=== PATIENT | male | born 1960 | race Caucasian/White ===

== ENCOUNTER 2020-06-01 18:09 | Inpatient (IN) | payer MEDICAID, SELFPAY ==
[2020-06-01 18:27] VITALS: BP 124/75; PULSE 97; RESP 20; TEMP 36.7; O2SAT 100; BMI 23.5
--- NOTE | 2020-06-01 18:52 | W.ED.BACK ---
Documented by User: RAISSA Zelaya 06/02/20 02:15 HPI - Back Pain/Injury General: Chief Complaint: Back Pain/Injury Stated Complaint: Left side back pain Time Seen by Provider: 06/01/20 18:38 History of Present Illness: HPI Narrative: Patient is a 60-year-old male who comes to the ED with left lower back pain. Pain started over a month ago. Patient says he has been walking a lot to get around town and states after all of his walking he started developing some lower back pain. He is also complaining of having some left thigh muscle pain particularly the medial aspect of left thigh. Patient denies any injury, trauma to cause symptoms. Denies any numbness tingling or pain down lower extremities, pelvic anesthesia, bladder or bowel incontinence. He says he has been tired lately. Patient also complained of having some nausea and vomiting that occurred earlier last week but has since resolved. He still has a little bit of nausea. Denies fever, chills, chest pain, shortness of breath, abdominal pain bladder or bowel symptoms. Patient is a tobacco smoker and says he has a [id number] history. Associated symptoms: Reports nausea; Deny abdominal pain, chills, dysuria, fatigue, fever(s), hematuria or vomiting Review of Systems Const: Denies: fever(s), chills or fatigue Eyes: Denies: change in vision or eye discomfort ENMT: Denies: throat pain, odynophagia, nasal discharge or nasal congestion Card: Denies: chest pain, palpitations, edema, swelling of feet/ankles, dyspnea on exertion or orthopnea Resp: Denies: dyspnea, productive cough or non-productive cough GI: Reports: nausea; Denies: abdominal pain, vomiting, diarrhea, constipation or hematochezia : Denies: flank pain, difficulty urinating, dysuria or hematuria Musc: Reports: back pain (left lower back); Denies: neck pain or extremity swelling Skin/Breast: Denies: rash or new lesions Neuro: Denies: headache(s), numbness in extremities or weakness in extremities Physical Exam Const: COMMON NORMALS: no acute distress, patient oriented x3 and alert GENERAL APPEARANCE: cooperative and comfortable HENMT: COMMON NORMALS: normocephalic HEAD & SCALP: normocephalic MOUTH: moist mucous membranes abnormal Details: parched THROAT: posterior oropharynx normal and uvula midline Eye: COMMON NORMALS: Equal, round and reactive pupils present CONJUNCTIVA: Yes conjunctival abnormal positive bilateral pallor PUPIL: Yes Equal, round and reactive pupils present Neck/C-Spine: COMMON NORMALS: supple GENERAL: Yes normal visual inspection Resp: COMMON NORMALS: normal respiratory effort, No retractions, No use of accessory muscles and clear to auscultation bilaterally AUSCULTATION: clear to auscultation bilaterally Cardio: COMMON NORMALS: regular rate, regular rhythm, S1 normal heart sound present, S2 normal heart sound present, No gallops present (Cardio), No clicks present (Cardio), No murmurs present (Cardio) and Peripheral pulses 2+ throughout RATE: regular rate RHYTHM: regular rhythm HEART SOUNDS: S1 normal heart sound present and S2 normal heart sound present PERIPHERAL PULSES: Peripheral pulses 2+ throughout GI: COMMON NORMALS: Normal to inspection, nondistended, normoactive bowel sounds present, Soft to palpation, non-tender and no masses PALPATION: Yes Soft to palpation : COMMON NORMALS: Yes no CVA tenderness BLADDER/KIDNEY EXAM: Yes no CVA tenderness Back/Pelvis: COMMON NORMALS: no CVA tenderness LUMBAR SPINE/LOWER BACK: No lumbar spinal tenderness and Yes paraspinal muscle tenderness Lumbar paraspinal muscle tenderness: left left lumbar paraspinal muscle tenderness: L3 and L4 Extremity: COMMON NORMALS: normal to inspection Neuro: COMMON NORMALS: patient oriented x3 and moves all extremities SENSORIUM/ORIENTATION: Yes alert Skin: GENERAL SKIN EXAM: dry skin Procedures Stool Hemoccult Procedural Steps Taken: stool placed in appropriate test area, developer placed on stool and control areas and controls appropriately positive and negative Hemoccult result: positive Additional Comments: Digital rectal exam was performed to obtain stool Hemoccult test. Stool appeared black in color. Course Vital Signs: Vital signs: Vital Signs Temperature 97.8 F 06/02/20 01:35 Pulse Rate 80 06/02/20 01:35 Respiratory Rate 16 06/02/20 01:35 Blood Pressure 130/65 06/02/20 01:35 Pulse Oximetry 98 06/02/20 01:35 MDM - Back Pain/Injury MDM Narrative: Medical decision making narrative: Patient is a 60-year-old male comes to the ED with left lower back pain and some nausea. Physical exam showed some conjunctiva pallor and patient has some paraspinal lumbar muscle tenderness on the left side. CBC was remarkable for hemoglobin of 5.0 and hematocrit of 15.9. White blood cells 14.2. Sodium was 122. I discussed patient case with Dr. Sarkar I ordered a type and screen and to units of blood for transfusion. CTA of chest abdomen pelvis was ordered as well. Care was then transferred over to Dr. Sarkar and he contacted hospitalist about admission. Lab Data: Attestation: I reviewed the patient's lab results. Labs: Lab Results 06/01/20 06/01/20 06/01/20 Range/Units 19:30 19:30 21:06 WBC 14.2 H (4.0-10.0) 10^3/ uL RBC 1.77 L (4.1-5.3) 10^6/u L Hgb 5.0 L* (11.7-16.6) g/dL Hct 15.9 L* (42.0-52.0) % MCV 89.8 (80-94) fL MCH 28.2 (28.0-34.0) pg MCHC 31.4 (30.0-36.0) g/dL RDW 15.5 H (12.1-15.1) % Plt Count 198 (130-400) 10^3/c mm MPV 10.7 H (7.4-10.4) fL Neut % (Auto) 83.1 % Lymph % (Auto) 5.9 % [place] % (Auto) 5.4 % Eos % (Auto) 0.1 % Baso % (Auto) 0.1 % Neut # (Auto) 11.77 H (1.8-7.7) 10^3/u L Lymph # (Auto) 0.8 (0.8-4.8) 10^3/u L [place] # (Auto) 0.8 (0.2-0.9) 10^3/u L Eos # (Auto) 0.0 (0.0-0.8) 10^3/u L Baso # (Auto) 0.0 (0.0-0.1) 10^3/u L Nucleated RBC % (a uto) 0.7 % Nucleated RBCs # 0.1 /100WBC Sodium 122 L (136-145) mmol/L Potassium 4.5 (3.5-5.1) mmol/L Chloride 87 L (98-107) mmol/L Carbon Dioxide 23 (22-29) mmol/L Anion Gap 16.5 (5-19) BUN 24 H (6-20) mg/dL Creatinine 0.6 L (0.7-1.2) mg/dL GFR Calculation 137.9 H (90-130) mL/min Glucose 96 (65-115) mg/dL Calculated Osmolal ity 258 L (285-295) mOsm/k g Calcium 8.9 (8.5-10.5) mg/dL Total Bilirubin 0.2 (0.15-1.2) mg/dL AST 28 (0-40) U/L ALT 16 (0-41) U/L Alkaline Phosphata se 207 H (40-130) IU/L Total Protein 6.4 L (6.6-8.7) g/dL Albumin 3.6 (3.5-5.2) g/dL Globulin 2.8 (1.3-4.6) g/dL SARS-CoV-2 Ag (Rap id) (Negative) Blood Type O Positive Rho(D) Type Positive Antibody Screen Negative Crossmatch See Detail 06/01/20 Range/Units 22:43 WBC (4.0-10.0) 10^3/ uL RBC (4.1-5.3) 10^6/u L Hgb (11.7-16.6) g/dL Hct (42.0-52.0) % MCV (80-94) fL MCH (28.0-34.0) pg MCHC (30.0-36.0) g/dL RDW (12.1-15.1) % Plt Count (130-400) 10^3/c mm MPV (7.4-10.4) fL Neut % (Auto) % Lymph % (Auto) % [place] % (Auto) % Eos % (Auto) % Baso % (Auto) % Neut # (Auto) (1.8-7.7) 10^3/u L Lymph # (Auto) (0.8-4.8) 10^3/u L [place] # (Auto) (0.2-0.9) 10^3/u L Eos # (Auto) (0.0-0.8) 10^3/u L Baso # (Auto) (0.0-0.1) 10^3/u L Nucleated RBC % (a uto) % Nucleated RBCs # /100WBC Sodium (136-145) mmol/L Potassium (3.5-5.1) mmol/L Chloride (98-107) mmol/L Carbon Dioxide (22-29) mmol/L Anion Gap (5-19) BUN (6-20) mg/dL Creatinine (0.7-1.2) mg/dL GFR Calculation (90-130) mL/min Glucose (65-115) mg/dL Calculated Osmolal ity (285-295) mOsm/k g Calcium (8.5-10.5) mg/dL Total Bilirubin (0.15-1.2) mg/dL AST (0-40) U/L ALT (0-41) U/L Alkaline Phosphata se (40-130) IU/L Total Protein (6.6-8.7) g/dL Albumin (3.5-5.2) g/dL Globulin (1.3-4.6) g/dL SARS-CoV-2 Ag (Rap id) Negative (Negative) Blood Type Rho(D) Type Antibody Screen Crossmatch Imaging Data^: CTA Chest: Attestation: I personally reviewed and interpreted this imaging study as follows: Radiologist's impression: [address] [address] [address] Scan Report Signed Patient: Александр Schaeffer Unit #: [id number] : 1960 Age/Sex: 60 / M ADM Date: 06/01/20 Loc: ER Room/Bed: Attending Dr: Ordering Provider/Ordering MD: Wisam Pozo Date of Service: 06/01/20 Procedure(s): CT angio chest abdomen pelvis Accession Number(s): [id number] Report Number: [id number] PROCEDURE INFORMATION: Exam: CT Angiography Abdomen and Pelvis With Contrast Exam date and time: 06/01/2020 9:14 PM Age: 60 years old Clinical indication: Abnormal findings; Abnormal lab test; Patient HX: Low h h w C/O low back pain; Additional info: Back pain and low hemoglobin TECHNIQUE: Imaging protocol: Computed tomographic angiography of the abdomen and pelvis with intravenous contrast material. 3D rendering (Not supervised by radiologist): MIP and/or 3D reconstructed images were created and reviewed. COMPARISON: No relevant prior studies available. FINDINGS: Lungs: Mild left perihilar pneumonia with some tree-in-bud opacities suggesting tuberculosis versus other infectious process or inflammatory process. Pleural space: Mild left pleural fluid collection. Aorta: No pulmonary embolus or aortic dissection. Celiac trunk and mesenteric arteries: No occlusion or significant stenosis. Renal arteries: No occlusion or significant stenosis. Right iliac arteries: No occlusion or significant stenosis. Left iliac arteries: No occlusion or significant stenosis. Liver: No mass. Gallbladder and bile ducts: Unremarkable. No calcified stones. No ductal dilation. Pancreas: Unremarkable. No mass. No ductal dilation. Spleen: Unremarkable. No splenomegaly. Adrenals: Unremarkable. No mass. Kidneys and ureters: Unremarkable. No solid mass. No hydronephrosis. Stomach and bowel: Unremarkable. No obstruction. No mucosal thickening. Appendix: No evidence of appendicitis. Intraperitoneal space: Unremarkable. No free air. No significant fluid collection. Lymph nodes: Calcified left hilar nodes and/or mediastinal nodes and/or lung granulomas consistent with old granulomatous disease. Right inferior hilar lymph nodes mimicking pulmonary emboli. Moderate mediastinal and bilateral hilar adenopathy consistent with lymphoma versus sarcoidosis. Urinary bladder: Unremarkable. No mass. Reproductive: Unremarkable as visualized. Bones/joints: No acute fracture. No dislocation. Soft tissues: Unremarkable. IMPRESSION: 1. Mild left pleural fluid collection. 2. Calcified left hilar nodes and/or mediastinal nodes and/or lung granulomas consistent with old granulomatous disease. 3. Mild left perihilar pneumonia with some tree-in-bud opacities suggesting tuberculosis versus other infectious process or inflammatory process. 4. Moderate mediastinal and bilateral hilar adenopathy consistent with lymphoma versus sarcoidosis. 5. No pulmonary embolus or aortic dissection. PROCEDURE INFORMATION: Exam: CT Angiography Abdomen and Pelvis Without And With Contrast Exam date and time: 06/01/2020 9:14 PM Age: 60 years old Clinical indication: Abnormal findings; Abnormal lab test; Patient HX: Low h h w C/O low back pain; Additional info: Back pain and low hemoglobin TECHNIQUE: Imaging protocol: Computed tomographic angiography of the abdomen and pelvis without and with intravenous contrast material. 3D rendering (Not supervised by radiologist): MIP and/or 3D reconstructed images were created by the technologist. Radiation optimization: All CT scans at this facility use at least one of these dose optimization techniques: automated exposure control; mA and/or kV adjustment per patient size (includes targeted exams where dose is matched to clinical indication); or iterative reconstruction. Contrast material: OMNI 350; Contrast volume: 95 ml; Contrast route: INTRAVENOUS (IV); COMPARISON: No relevant prior studies available. RADIATION DOSE METRICS: Total DLP (mGy-cm): 1005.88 FINDINGS: Aorta: Calcification of the abdominal aorta and/or iliac arteries consistent with atherosclerotic vessel disease. Celiac trunk and mesenteric arteries: No occlusion or significant stenosis. Renal arteries: No occlusion or significant stenosis. Right iliac arteries: No occlusion or significant stenosis. Left iliac arteries: No occlusion or significant stenosis. Liver: No mass. Gallbladder and bile ducts: Multiple tiny calcified gallstones. Pancreas: Unremarkable. No mass. No ductal dilation. Spleen: Unremarkable. No splenomegaly. Adrenals: Unremarkable. No mass. Kidneys and ureters: Unremarkable. No solid mass. No hydronephrosis. Stomach and bowel: Jejunal bowel wall thickening consistent with jejunitis. Appendix: No evidence of appendicitis. Intraperitoneal space: Unremarkable. No free air. No significant fluid collection. Lymph nodes: Mild left middle mediastinum adenopathy in the inferior thorax with moderate to large left retrocrural adenopathy and probable gastrohepatic adenopathy and mild right retrocrural adenopathy. Lymphoma versus metastatic disease. Moderate jaswinder hepatis celiac axis and periaortic lymphadenopathy consistent with lymphoma versus metastatic disease. Urinary bladder: Unremarkable. No mass. Reproductive: Unremarkable as visualized. Bones/joints: No acute fracture. No dislocation. Soft tissues: Unremarkable. CT/CT angio chest abdomen pelvis IMPRESSION: 1. Mild left middle mediastinum adenopathy in the inferior thorax with moderate to large left retrocrural adenopathy and probable gastrohepatic adenopathy and mild right retrocrural adenopathy. Lymphoma versus metastatic disease. 2. Multiple tiny calcified gallstones. 3. Moderate jaswinder hepatis celiac axis and periaortic lymphadenopathy consistent with lymphoma versus metastatic disease. 4. Jejunal bowel wall thickening consistent with jejunitis. Radiation Dose CTDIVOL = (mGy): DLP = 1005.88 (mGy-cm) Dictated By: Kodak Coronel MD Signed By: Kodak Coronel MD Signed Date/Time: 06/01/202158 DD/ 56 Discharge Plan Discharge Patient Disposition: Admitted As Inpatient Admit Provider: Desiree Carrero Clinical Impression: Hyponatremia, Severe anemia GI bleed Qualifiers: GI bleed type/associated pathology: unspecified gastrointestinal hemorrhage type Qualified Code(s): K92.2 - Gastrointestinal hemorrhage, unspecified Condition: Stable Discharge Diet: Regular Discharge Activity: Increase activity as tolerated Patient Instructions: Low Back Strain (ED) Discharge Date/Time: 06/02/20 02:09 Coding Level of Care Code ED Table Assembler for Chg Fwd Exam Comprehensive Documented by User: Herbie Sarkar DO 06/02/20 01:02 HPI - Back Pain/Injury General: Chief Complaint: Back Pain/Injury Stated Complaint: Left side back pain Time Seen by Provider: 06/01/20 18:38 Course Consultations: Consultation #1: fabiana Time: 00:35 Consultation #2: lashell Time: 00:56 Vital Signs: Vital signs: Vital Signs Temperature 97.8 F 06/02/20 01:35 Pulse Rate 80 06/02/20 01:35 Respiratory Rate 16 06/02/20 01:35 Blood Pressure 130/65 06/02/20 01:35 Pulse Oximetry 98 06/02/20 01:35 MDM - Back Pain/Injury MDM Narrative: Medical decision making narrative: 60-year-old male patient originally seen by Mr. Nohelia PA-C. I agree with his history, evaluation, and work-up. This is a male who had come in with back pain, stating that his back pain is slowly worsened over the past week or so. He also had some nausea and vomiting. He denies any jessica blood in his stool. Laboratory was drawn, showing a white blood cell count 14.2 with a hemoglobin of 5. His sodium was also low at 122. BUN mildly high at 24. He was Hemoccult positive, with black stool, no jessica blood. CTA of the chest abdomen pelvis reveals some scattered adenopathy consistent with metastatic disease such as lymphoma. There is also wall thickening of the jejunum consistent with jejunitis, which may or may not be a source of his bleeding. He does take ibuprofen. There is a left perihilar infiltrate of the lungs. Because of this, COVID testing was performed, and his rapid antigen is negative. He has no COVID symptoms. He will be admitted to telemetry. He is received 1 unit of 2 crossmatched for him so far. Surgery was consulted and is on board. Lab Data: Labs: Lab Results 06/01/20 06/01/20 06/01/20 Range/Units 19:30 19:30 21:06 WBC 14.2 H (4.0-10.0) 10^3/ uL RBC 1.77 L (4.1-5.3) 10^6/u L Hgb 5.0 L* (11.7-16.6) g/dL Hct 15.9 L* (42.0-52.0) % MCV 89.8 (80-94) fL MCH 28.2 (28.0-34.0) pg MCHC 31.4 (30.0-36.0) g/dL RDW 15.5 H (12.1-15.1) % Plt Count 198 (130-400) 10^3/c mm MPV 10.7 H (7.4-10.4) fL Neut % (Auto) 83.1 % Lymph % (Auto) 5.9 % [place] % (Auto) 5.4 % Eos % (Auto) 0.1 % Baso % (Auto) 0.1 % Neut # (Auto) 11.77 H (1.8-7.7) 10^3/u L Lymph # (Auto) 0.8 (0.8-4.8) 10^3/u L [place] # (Auto) 0.8 (0.2-0.9) 10^3/u L Eos # (Auto) 0.0 (0.0-0.8) 10^3/u L Baso # (Auto) 0.0 (0.0-0.1) 10^3/u L Nucleated RBC % (a uto) 0.7 % Nucleated RBCs # 0.1 /100WBC Sodium 122 L (136-145) mmol/L Potassium 4.5 (3.5-5.1) mmol/L Chloride 87 L (98-107) mmol/L Carbon Dioxide 23 (22-29) mmol/L Anion Gap 16.5 (5-19) BUN 24 H (6-20) mg/dL Creatinine 0.6 L (0.7-1.2) mg/dL GFR Calculation 137.9 H (90-130) mL/min Glucose 96 (65-115) mg/dL Calculated Osmolal ity 258 L (285-295) mOsm/k g Calcium 8.9 (8.5-10.5) mg/dL Total Bilirubin 0.2 (0.15-1.2) mg/dL AST 28 (0-40) U/L ALT 16 (0-41) U/L Alkaline Phosphata se 207 H (40-130) IU/L Total Protein 6.4 L (6.6-8.7) g/dL Albumin 3.6 (3.5-5.2) g/dL Globulin 2.8 (1.3-4.6) g/dL SARS-CoV-2 Ag (Rap id) (Negative) Blood Type O Positive Rho(D) Type Positive Antibody Screen Negative Crossmatch See Detail 06/01/20 Range/Units 22:43 WBC (4.0-10.0) 10^3/ uL RBC (4.1-5.3) 10^6/u L Hgb (11.7-16.6) g/dL Hct (42.0-52.0) % MCV (80-94) fL MCH (28.0-34.0) pg MCHC (30.0-36.0) g/dL RDW (12.1-15.1) % Plt Count (130-400) 10^3/c mm MPV (7.4-10.4) fL Neut % (Auto) % Lymph % (Auto) % [place] % (Auto) % Eos % (Auto) % Baso % (Auto) % Neut # (Auto) (1.8-7.7) 10^3/u L Lymph # (Auto) (0.8-4.8) 10^3/u L [place] # (Auto) (0.2-0.9) 10^3/u L Eos # (Auto) (0.0-0.8) 10^3/u L Baso # (Auto) (0.0-0.1) 10^3/u L Nucleated RBC % (a uto) % Nucleated RBCs # /100WBC Sodium (136-145) mmol/L Potassium (3.5-5.1) mmol/L Chloride (98-107) mmol/L Carbon Dioxide (22-29) mmol/L Anion Gap (5-19) BUN (6-20) mg/dL Creatinine (0.7-1.2) mg/dL GFR Calculation (90-130) mL/min Glucose (65-115) mg/dL Calculated Osmolal ity (285-295) mOsm/k g Calcium (8.5-10.5) mg/dL Total Bilirubin (0.15-1.2) mg/dL AST (0-40) U/L ALT (0-41) U/L Alkaline Phosphata se (40-130) IU/L Total Protein (6.6-8.7) g/dL Albumin (3.5-5.2) g/dL Globulin (1.3-4.6) g/dL SARS-CoV-2 Ag (Rap id) Negative (Negative) Blood Type Rho(D) Type Antibody Screen Crossmatch Discharge Plan Discharge Patient Disposition: Admitted As Inpatient Admit Provider: Desiree Carrero Clinical Impression: Hyponatremia, Severe anemia GI bleed Qualifiers: GI bleed type/associated pathology: unspecified gastrointestinal hemorrhage type Qualified Code(s): K92.2 - Gastrointestinal hemorrhage, unspecified Condition: Stable Discharge Diet: Regular Discharge Activity: Increase activity as tolerated Patient Instructions: Low Back Strain (ED) Discharge Date/Time: 06/02/20 02:09 Coding Level of Care Code ED Table Assembler for Mimi Fwd Exam Comprehensive
[2020-06-01] MEDS: ondansetron 4 MG Tablet PO (19:21)
[2020-06-01] MEDS: ketorolac 60 mg/2 mL INJ IM (19:21)
[2020-06-01] MEDS: orphenadrine 30 mg/mL Inj 2 mL 60 MG IM (19:22)
[2020-06-01 19:48] LABS: Basophils % 0.1 %; Eosinophils % 0.1 %; Lymphocytes # 0.8 10^3/uL (0.8-4.8); Lymphocytes % 5.9 %; Mean Corpuscular HGB Conc 31.4 g/dL (30.0-36.0); Mean Corpuscular Hemoglobin 28.2 pg (28.0-34.0); Mean Corpuscular Volume 89.8 fL (80-94); Mean Platelet Volume 10.7 fL (7.4-10.4); Monocytes # 0.8 10^3/uL (0.2-0.9); Monocytes % 5.4 %; Neutrophils # 11.77 10^3/uL (1.8-7.7); Neutrophils % 83.1 %; Nucleated Red Blood Cells # 0.1 /100WBC; Nucleated Red Blood Cells % 0.7 %; Platelet Count 198 10^3/cmm (130-400); Positive C 1; Positive M 1; Red Blood Count 1.77 10^6/uL (4.1-5.3); Red Cell Distribution Width 15.5 % (12.1-15.1); White Blood Count 14.2 10^3/uL (4.0-10.0)
[2020-06-01 20:32] LABS: Alanine Aminotransferase 16 U/L (0-41); Albumin Level 3.6 g/dL (3.5-5.2); Alkaline Phosphatase 207 IU/L (40-130); Anion Gap 16.5 (5-19); Aspartate Amino Transferase 28 U/L (0-40); Blood Urea Nitrogen 24 mg/dL (6-20); Calcium 8.9 mg/dL (8.5-10.5); Carbon Dioxide 23 mmol/L (22-29); Chloride 87 mmol/L (98-107); Globulin 2.8 g/dL (1.3-4.6); Glomerular Filtration Rate 137.9 mL/min (90-130); Glucose 96 mg/dL (65-115); Osmolality Calculated 258 mOsm/kg (285-295); Potassium 4.5 mmol/L (3.5-5.1); Sodium 122 mmol/L (136-145); Total Bilirubin 0.2 mg/dL (0.15-1.2); Total Protein 6.4 g/dL (6.6-8.7)
[2020-06-01 20:33] VITALS: BP 141/63; PULSE 83; RESP 18; O2SAT 100
[2020-06-01 20:50] LABS: Hematocrit 15.9 % (42.0-52.0)
--- NOTE | 2020-06-01 20:54 | CTR_ITS ---
PROCEDURE INFORMATION: Exam: CT Angiography Abdomen and Pelvis With Contrast Exam date and time: 06/01/2020 9:14 PM Age: 60 years old Clinical indication: Abnormal findings; Abnormal lab test; Patient HX: Low h&h w C/O low back pain; Additional info: Back pain and low hemoglobin TECHNIQUE: Imaging protocol: Computed tomographic angiography of the abdomen and pelvis with intravenous contrast material. 3D rendering (Not supervised by radiologist): MIP and/or 3D reconstructed images were created and reviewed. COMPARISON: No relevant prior studies available. FINDINGS: Lungs: Mild left perihilar pneumonia with some tree-in-bud opacities suggesting tuberculosis versus other infectious process or inflammatory process. Pleural space: Mild left pleural fluid collection. Aorta: No pulmonary embolus or aortic dissection. Celiac trunk and mesenteric arteries: No occlusion or significant stenosis. Renal arteries: No occlusion or significant stenosis. Right iliac arteries: No occlusion or significant stenosis. Left iliac arteries: No occlusion or significant stenosis. Liver: No mass. Gallbladder and bile ducts: Unremarkable. No calcified stones. No ductal dilation. Pancreas: Unremarkable. No mass. No ductal dilation. Spleen: Unremarkable. No splenomegaly. Adrenals: Unremarkable. No mass. Kidneys and ureters: Unremarkable. No solid mass. No hydronephrosis. Stomach and bowel: Unremarkable. No obstruction. No mucosal thickening. Appendix: No evidence of appendicitis. Intraperitoneal space: Unremarkable. No free air. No significant fluid collection. Lymph nodes: Calcified left hilar nodes and/or mediastinal nodes and/or lung granulomas consistent with old granulomatous disease. Right inferior hilar lymph nodes mimicking pulmonary emboli. Moderate mediastinal and bilateral hilar adenopathy consistent with lymphoma versus sarcoidosis. Urinary bladder: Unremarkable. No mass. Reproductive: Unremarkable as visualized. Bones/joints: No acute fracture. No dislocation. Soft tissues: Unremarkable. IMPRESSION: 1. Mild left pleural fluid collection. 2. Calcified left hilar nodes and/or mediastinal nodes and/or lung granulomas consistent with old granulomatous disease. 3. Mild left perihilar pneumonia with some tree-in-bud opacities suggesting tuberculosis versus other infectious process or inflammatory process. 4. Moderate mediastinal and bilateral hilar adenopathy consistent with lymphoma versus sarcoidosis. 5. No pulmonary embolus or aortic dissection. PROCEDURE INFORMATION: Exam: CT Angiography Abdomen and Pelvis Without And With Contrast Exam date and time: 06/01/2020 9:14 PM Age: 60 years old Clinical indication: Abnormal findings; Abnormal lab test; Patient HX: Low h&h w C/O low back pain; Additional info: Back pain and low hemoglobin TECHNIQUE: Imaging protocol: Computed tomographic angiography of the abdomen and pelvis without and with intravenous contrast material. 3D rendering (Not supervised by radiologist): MIP and/or 3D reconstructed images were created by the technologist. Radiation optimization: All CT scans at this facility use at least one of these dose optimization techniques: automated exposure control; mA and/or kV adjustment per patient size (includes targeted exams where dose is matched to clinical indication); or iterative reconstruction. Contrast material: OMNI 350; Contrast volume: 95 ml; Contrast route: INTRAVENOUS (IV); COMPARISON: No relevant prior studies available. RADIATION DOSE METRICS: Total DLP (mGy-cm): 1005.88 FINDINGS: Aorta: Calcification of the abdominal aorta and/or iliac arteries consistent with atherosclerotic vessel disease. Celiac trunk and mesenteric arteries: No occlusion or significant stenosis. Renal arteries: No occlusion or significant stenosis. Right iliac arteries: No occlusion or significant stenosis. Left iliac arteries: No occlusion or significant stenosis. Liver: No mass. Gallbladder and bile ducts: Multiple tiny calcified gallstones. Pancreas: Unremarkable. No mass. No ductal dilation. Spleen: Unremarkable. No splenomegaly. Adrenals: Unremarkable. No mass. Kidneys and ureters: Unremarkable. No solid mass. No hydronephrosis. Stomach and bowel: Jejunal bowel wall thickening consistent with jejunitis. Appendix: No evidence of appendicitis. Intraperitoneal space: Unremarkable. No free air. No significant fluid collection. Lymph nodes: Mild left middle mediastinum adenopathy in the inferior thorax with moderate to large left retrocrural adenopathy and probable gastrohepatic adenopathy and mild right retrocrural adenopathy. Lymphoma versus metastatic disease. Moderate jaswinder hepatis celiac axis and periaortic lymphadenopathy consistent with lymphoma versus metastatic disease. Urinary bladder: Unremarkable. No mass. Reproductive: Unremarkable as visualized. Bones/joints: No acute fracture. No dislocation. Soft tissues: Unremarkable. CT/CT angio chest abdomen pelvis IMPRESSION: 1. Mild left middle mediastinum adenopathy in the inferior thorax with moderate to large left retrocrural adenopathy and probable gastrohepatic adenopathy and mild right retrocrural adenopathy. Lymphoma versus metastatic disease. 2. Multiple tiny calcified gallstones. 3. Moderate jaswinder hepatis celiac axis and periaortic lymphadenopathy consistent with lymphoma versus metastatic disease. 4. Jejunal bowel wall thickening consistent with jejunitis. Radiation Dose CTDIVOL = (mGy): DLP = 1005.88 (mGy-cm)
[2020-06-01] MEDS: iohexol 350 mg/mL 100 mL Btl IV (21:31)
[2020-06-01 22:35] VITALS: BP 106/63; PULSE 83; RESP 17; TEMP 36.7; O2SAT 100
[2020-06-01] MEDS: sodium chloride 0.9% 1,000 ML 999 ML IV (22:38)
[2020-06-01 22:40] VITALS: BP 108/63; PULSE 97; RESP 18; O2SAT 100
[2020-06-01 22:53] VITALS: BP 115/52; PULSE 85; RESP 18; TEMP 36.8
[2020-06-01 23:08] VITALS: BP 115/63; PULSE 80; RESP 16; TEMP 36.7
--- NOTE | 2020-06-01 23:12 | PC.NURSE ---
rate at 175 ml/hr
[2020-06-01 23:16] LABS: SARS Covid-2 Antigen Negative (Negative)
[2020-06-02] VITALS (21 sets, daily range): BP systolic 105–147; BP diastolic 53–81; PULSE 72–93; RESP 12–21; TEMP 36.4–37.6; O2SAT 91–99
--- NOTE | 2020-06-02 01:05 | PC.NURSE ---
pt reports relief after one unit. Pt's coloring improved after infusion
[2020-06-02] MEDS: sodium chloride 0.9% 1,000 ML 100 ML IV ×2 (04:13→10:24)
[2020-06-02] MEDS: morphine 4 mg/mL SDV 1 mL IVP (04:14)
[2020-06-02 05:18] LABS: Basophils # 0.1 10^3/uL (0.0-0.1); Basophils % 0.4 %; Eosinophils # 0.1 10^3/uL (0.0-0.8); Eosinophils % 0.5 %; Lymphocytes # 0.6 10^3/uL (0.8-4.8); Mean Corpuscular HGB Conc 32.5 g/dL (30.0-36.0); Mean Corpuscular Hemoglobin 29.1 pg (28.0-34.0); Mean Corpuscular Volume 89.6 fL (80-94); Mean Platelet Volume 10.9 fL (7.4-10.4); Monocytes # 0.7 10^3/uL (0.2-0.9); Neutrophils # 9.57 10^3/uL (1.8-7.7); Neutrophils % 81.9 %; Nucleated Red Blood Cells # 0.1 /100WBC; Nucleated Red Blood Cells % 1.1 %; Platelet Count 161 10^3/cmm (130-400); Red Blood Count 2.68 10^6/uL (4.1-5.3); Red Cell Distribution Width 14.8 % (12.1-15.1); White Blood Count 11.7 10^3/uL (4.0-10.0)
--- NOTE | 2020-06-02 05:20 | PM.HP ---
Providers/Chief Complaint Admitting Physician: Desiree Carrero MD Primary Care Provider: none Chief Complaint: Left side back pain History of Present Illness Александр Schaeffer is a 60 year old male who presented to the emergency room with a chief complaint of back pain and leg pain. Patient was recently incarcerated in [facility]. He was there for about 4 months. He was released on parole. He walked a long way and then eventually ended up with a ride here. He has arrangements made to stay at [facility] for about 6 months. He has an electronic monitoring device on his left ankle. Because of all the walking he did his back is been bothering for several weeks. He was released in March. Groin muscles and low back muscles are what bother him the most. He reported fatigue as well as some nausea and vomiting. Work-up in the emergency room included laboratory studies which revealed a hemoglobin of 5. Stool was Hemoccult positive and black in color. Patient himself had not noted black stools or tarry stools. He denies any hematemesis. CTA of the chest abdomen and pelvis was done. This ended up revealing multiple findings as noted below. Given the severity of anemia, patient is being admitted for further evaluation and treatment. Review of Systems Const: Denies: fever(s), chills, body aches, change in appetite, change in weight, fatigue, malaise, night sweats or diaphoresis Eyes: Denies: change in vision or yellow eyes ENMT: Denies: throat pain, odynophagia, oral sores, dry mouth, nasal congestion or epistaxis Card: Denies: chest pain, palpitations, edema, lightheadedness, syncope, pre-syncope or dyspnea on exertion Resp: Denies: productive cough, non-productive cough, wheezing, stridor, pain on inspiration or hemoptysis GI: Denies: abdominal pain, nausea, vomiting, diarrhea, constipation, change in bowel habits, hematochezia or melena : Denies: difficulty urinating or hematuria Musc: Reports: back pain, extremity pain and muscle weakness Skin/Breast: Denies: rash, pruritus or sores Neuro: Denies: headache(s), numbness in extremities, weakness in extremities or dizziness Psych: Denies: anxiety or depression [place]/Lymph: Denies: easy bruising, easy bleeding, petechiae, enlarged lymph nodes or tender lymph nodes Medications/Allergies Allergies Allergy/AdvReac Type Severity Reaction Status Date / Time aspirin Allergy ADR-Seizure Verified 06/01/20 18:33 Additional Medication Information Aspirin for pain or migraine when needed, not daily. Has taken ibuprofen but not recently due to COVID warnings. PFSH Acute PFSH: Medical History (Updated 06/02/20 @ 05:59 by Desiree Carrero MD) Migraine headache Surgical History (Updated 06/02/20 @ 05:30 by Desiree Carrero MD) No pertinent past surgical history Family History (Updated 06/02/20 @ 05:45 by Desiree Carrero MD) Denies family history of Bleeding disorder Lung disease Cancer Social History (Updated 06/02/20 @ 05:57 by Desiree Carrero MD) Smoking and tobacco status: current some day smoker cigarettes Housing: Other Details: Currently staying at [facility] Sexually active: Yes Additional social history: Denies current alcohol or drug use. Only thing he says he is ever taken is hydrocodone for migraines and that was his 's. States incarceration stemmed from issues with his . Consider self heterosexual. Denies long term relationship. Vitals/I&O/Wt Last Vital Signs Temp 97.8 F 06/02/20 04:27 Pulse 79 06/02/20 04:27 Resp 18 06/02/20 04:27 BP 132/81 06/02/20 04:27 Pulse Ox 99 06/02/20 04:27 06/01/20 06/01/20 06/02/20 14:59 22:59 06:59 Intake Total 0 / 0 550 / 550 Output Total 300 / 300 Balance 0 / 0 250 / 250 Weight last 48 hrs Weight 68.039 kg Physical Exam Const: OTHER: Alert, oriented x3, cooperative, thin build HENMT: OTHER: Normocephalic atraumatic, moist but pale mucous membranes, no petechia Eye: OTHER: Pupils equally round and reactive to light, pale conjunctiva Neck/C-Spine: OTHER: Supple, no gross lymphadenopathy or thyromegaly Resp: OTHER: Clear to auscultation bilaterally, no rales, rhonchi or wheezes noted, no retractions or tachypnea Cardio: OTHER: Regular rate and rhythm, systolic murmur at the left lower sternal border, pulses 2+ and equal GI: OTHER: Abdomen soft, nontender including in the epigastric region, nondistended with positive bowel sounds : OTHER: Deferred Extremity: NARRATIVE EXTREMITY EXAM: No cyanosis, clubbing or edema, no acute synovitis. Ankle monitor is noted to the left ankle Neuro: OTHER: Face symmetric, speech clear, moves all extremities Psych: OTHER: Normal affect Skin: OTHER: Pale, no acute rashes Data : 06/01/20 19:30 06/01/20 19: Other Labs: Laboratory Last Values WBC 14.2 10^3/uL (4.0-10.0) H 06/01/20 19: RBC 1.77 10^6/uL (4.1-5.3) L 06/01/20 19: Hgb 5.0 g/dL (11.7-16.6) L* 06/01/20 19: Hct 15.9 % (42.0-52.0) L* 06/01/20 19: MCV 89.8 fL (80-94) 06/01/20 19: MCH 28.2 pg (28.0-34.0) 06/01/20 19: MCHC 31.4 g/dL (30.0-36.0) 06/01/20 19: RDW 15.5 % (12.1-15.1) H 06/01/20 19:30 Plt Count 198 10^3/cmm (130-400) 06/01/20 19: MPV 10.7 fL (7.4-10.4) H 06/01/20 19:30 Neut % (Auto) 83.1 % 06/01/20 19:30 Lymph % (Auto) 5.9 % 06/01/20 19:30 [place] % (Auto) 5.4 % 06/01/20 19: Eos % (Auto) 0.1 % 06/01/20 19: Baso % (Auto) 0.1 % 06/01/20 19:30 Neut # (Auto) 11.77 10^3/uL (1.8-7.7) H 06/01/20 19: Lymph # (Auto) 0.8 10^3/uL (0.8-4.8) 06/01/20 19:30 [place] # (Auto) 0.8 10^3/uL (0.2-0.9) 06/01/20 19:30 Eos # (Auto) 0.0 10^3/uL (0.0-0.8) 06/01/20 19:30 Baso # (Auto) 0.0 10^3/uL (0.0-0.1) 06/01/20 19:30 Nucleated RBC % (auto) 0.7 % 06/01/20: Nucleated RBCs # 0.1 /100WBC 06/01/20 19:30 Sodium 122 mmol/L (136-145) L 06/01/20 19:30 Potassium 4.5 mmol/L (3.5-5.1) 06/01/20:30 Chloride 87 mmol/L (98-107) L 06/01/20:30 Carbon Dioxide 23 mmol/L (22-29) 06/01/20 19:30 Anion Gap 16.5 (5-19) 06/01/20:30 BUN 24 mg/dL (6-20) H 06/01/20 19:30 Creatinine 0.6 mg/dL (0.7-1.2) L 06/01/20 19:30 GFR Calculation 137.9 mL/min (90-130) H 06/01/20 19:30 Glucose 96 mg/dL (65-115) 06/01/20 19:30 Calculated Osmolality 258 mOsm/kg (285-295) L 06/01/20:30 Calcium 8.9 mg/dL (8.5-10.5) 06/01/20:30 Total Bilirubin 0.2 mg/dL (0.15-1.2) 06/01/20 19:30 AST 28 U/L (0-40) 06/01/20 19:30 ALT 16 U/L (0-41) 06/01/20 19:30 Alkaline Phosphatase 207 IU/L (40-130) H 06/01/20 19:30 Total Protein 6.4 g/dL (6.6-8.7) L 06/01/20 19:30 Albumin 3.6 g/dL (3.5-5.2) 06/01/20:30 Globulin 2.8 g/dL (1.3-4.6) 06/01/20 19:30 SARS-CoV-2 Ag (Rapid) Negative (Negative) 06/01/20 22:43 Blood Type O Positive 06/01/20 21:06 Rho(D) Type Positive 06/01/20 21:06 Antibody Screen Negative 06/01/20 21:06 Crossmatch See Detail 06/01/20 21:06 CTA Chest, Abd, Pelvis: Radiologist's impression: FINDINGS: Lungs: Mild left perihilar pneumonia with some tree-in-bud opacities suggesting tuberculosis versus other infectious process or inflammatory process. Pleural space: Mild left pleural fluid collection. Aorta: No pulmonary embolus or aortic dissection. Celiac trunk and mesenteric arteries: No occlusion or significant stenosis. Renal arteries: No occlusion or significant stenosis. Right iliac arteries: No occlusion or significant stenosis. Left iliac arteries: No occlusion or significant stenosis. Liver: No mass. Gallbladder and bile ducts: Unremarkable. No calcified stones. No ductal dilation. Pancreas: Unremarkable. No mass. No ductal dilation. Spleen: Unremarkable. No splenomegaly. Adrenals: Unremarkable. No mass. Kidneys and ureters: Unremarkable. No solid mass. No hydronephrosis. Stomach and bowel: Unremarkable. No obstruction. No mucosal thickening. Appendix: No evidence of appendicitis. Intraperitoneal space: Unremarkable. No free air. No significant fluid collection. Lymph nodes: Calcified left hilar nodes and/or mediastinal nodes and/or lung granulomas consistent with old granulomatous disease. Right inferior hilar lymph nodes mimicking pulmonary emboli. Moderate mediastinal and bilateral hilar adenopathy consistent with lymphoma versus sarcoidosis. Urinary bladder: Unremarkable. No mass. Reproductive: Unremarkable as visualized. Bones/joints: No acute fracture. No dislocation. Soft tissues: Unremarkable. IMPRESSION: 1. Mild left pleural fluid collection. 2. Calcified left hilar nodes and/or mediastinal nodes and/or lung granulomas consistent with old granulomatous disease. 3. Mild left perihilar pneumonia with some tree-in-bud opacities suggesting tuberculosis versus other infectious process or inflammatory process. 4. Moderate mediastinal and bilateral hilar adenopathy consistent with lymphoma versus sarcoidosis. 5. No pulmonary embolus or aortic dissection. FINDINGS: Aorta: Calcification of the abdominal aorta and/or iliac arteries consistent with atherosclerotic vessel disease. Celiac trunk and mesenteric arteries: No occlusion or significant stenosis. Renal arteries: No occlusion or significant stenosis. Right iliac arteries: No occlusion or significant stenosis. Left iliac arteries: No occlusion or significant stenosis. Liver: No mass. Gallbladder and bile ducts: Multiple tiny calcified gallstones. Pancreas: Unremarkable. No mass. No ductal dilation. Spleen: Unremarkable. No splenomegaly. Adrenals: Unremarkable. No mass. Kidneys and ureters: Unremarkable. No solid mass. No hydronephrosis. Stomach and bowel: Jejunal bowel wall thickening consistent with jejunitis. Appendix: No evidence of appendicitis. Intraperitoneal space: Unremarkable. No free air. No significant fluid collection. Lymph nodes: Mild left middle mediastinum adenopathy in the inferior thorax with moderate to large left retrocrural adenopathy and probable gastrohepatic adenopathy and mild right retrocrural adenopathy. Lymphoma versus metastatic disease. Moderate jaswinder hepatis celiac axis and periaortic lymphadenopathy consistent with lymphoma versus metastatic disease. Urinary bladder: Unremarkable. No mass. Reproductive: Unremarkable as visualized. Bones/joints: No acute fracture. No dislocation. Soft tissues: Unremarkable. CT/CT angio chest abdomen pelvis IMPRESSION: 1. Mild left middle mediastinum adenopathy in the inferior thorax with moderate to large left retrocrural adenopathy and probable gastrohepatic adenopathy and mild right retrocrural adenopathy. Lymphoma versus metastatic disease. 2. Multiple tiny calcified gallstones. 3. Moderate jaswinder hepatis celiac axis and periaortic lymphadenopathy consistent with lymphoma versus metastatic disease. 4. Jejunal bowel wall thickening consistent with jejunitis. A&P Assessment and plan (1) Severe anemia: Normocytic. Specific type otherwise unknown at the moment. Presumptively GI losses but to be so tolerant of a hemoglobin of 5, I would have expected to see microcytosis indicative of chronic blood loss. May have a mixed picture. Denies report of identified chronic blood loss but was noted to be heme positive with black stool in the emergency room. On specific questioning has taken aspirin and NSAIDs for pain and migraine control but neither of them excessively newly. Clinically this appears to been a slow developing anemia. Abnormality incidentally identified as he did not present with symptoms classic of anemia. Normal platelet count. Status: Acute (2) GI bleed: Evidenced by heme positive melanotic stools. Possible gastritis from NSAIDs. Did have evidence of some jejunitis on CT imaging so this could be another area of loss potentially. No complaints of abdominal pain or epigastric pain. Status: Acute Qualifiers: GI bleed type/associated pathology: unspecified gastrointestinal hemorrhage type Qualified Code(s): K92.2 - Gastrointestinal hemorrhage, unspecified (3) Jejunitis: Identification on CT imaging. Denies any change in bowel movements recently, abdominal pain. Status: Acute (4) Pneumonia: Diagnosis as per radiological interpretation of CTA of the chest, left perihilar area with tree-in-bud opacities reported as tuberculosis versus other infectious process versus inflammatory process. Have some leukocytosis but no fever or respiratory symptoms to speak of. Does not have classical symptoms of TB including weight loss, fever, night sweats. That said he has been recently incarcerated. Status: Acute Qualifiers: Pneumonia type: due to unspecified organism Laterality: left Lung location: unspecified part of lung Qualified Code(s): J18.9 - Pneumonia, unspecified organism (5) Adenopathy: Radiology interpretation of CTAs shows findings of moderate mediastinal and bilateral hilar adenopathy, retrocrural adenopathy, gastrohepatic adenopathy, periaortic lymphadenopathy and jaswinder hepatis celiac axis adenopathy described as consistent with lymphoma versus sarcoidosis/granulomatous disease versus metastatic disease. Reporting does not give estimation of sizes of the lymph nodes. Status: Acute (6) Hyponatremia: Concerning for SIADH though could simply be from volume status. Status: Acute (7) History of incarceration: Recent, 4 months total, released in March Status: Acute (8) Nicotine dependence, cigarettes, uncomplicated: Status: Chronic Additional A&P Information Inpatient admission Transfusion blood Serial H&H TIBC, B12, folate, coagulation studies Check sed rate, CRP, ESR, procalcitonin Hold any antibiotic coverage for the possibility of pneumonia presently given lack of respiratory symptoms Check HIV and PPD Check TSH, uric acid, urine electrolytes Surgical consultation for the duration of endoscopy for GI bleed and even potentially biopsy of adenopathy-Dr. Russ was notified from the ER N.p.o. for possibility of procedure today after blood is transfused PPI twice daily Consider reviewing CT imaging with radiology located here at [facility] [place] to evaluate for second read and or any sources of potential lymph node biopsy Will need arrangements for outpatient follow-up Supportive care otherwise Plans discussed with patient and he was given an opportunity to ask questions Attestations Medical Necessity Statement*: Anticipate hospital stay greater than 2 midnights in a gentleman without significant past medical history presenting with a hemoglobin of 5. May be a GI source of bleeding but multiple other abnormalities indicated on CT imaging as noted above. Plans are as indicated. Does not have anyone currently to follow-up with. 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
[2020-06-02 06:20] LABS: Hemoglobin 7.8 g/dL (11.7-16.6)
[2020-06-02 06:21] LABS: Slide Review Slide Review Perform
--- NOTE | 2020-06-02 06:26 | P.CONIM_ITS ---
Providers/Reason For Consult Consulting Physican/Specialty*: Erik Russ MD Reason for Consult*: Melanotic stool with low hemoglobin level Attending Physician: Desiree Carrero MD History of Present Illness History of Present Illness Chief Complaint: My Back hurts History of present illness: Mr Александр Schaeffer is a 60 year old male presented initially to the emergency department with back pain and further work-up showed that the patient had melanotic stool and a hemoglobin of 5. Patient reports that he has been taking NSAIDs for his pain. Patient reports no history of melanotic stools or vomiting of blood and he never had an upper endoscopy before yet he did have a colonoscopy remotely and was told that it was normal. CT scan of the chest abdomen and pelvis showed; IMPRESSION: 1. Mild left middle mediastinum adenopathy in the inferior thorax with moderate to large left retrocrural adenopathy and probable gastrohepatic adenopathy and mild right retrocrural adenopathy. Lymphoma versus metastatic disease. 2. Multiple tiny calcified gallstones. 3. Moderate jaswinder hepatis celiac axis and periaortic lymphadenopathy consistent with lymphoma versus metastatic disease. 4. Jejunal bowel wall thickening consistent with jejunitis. General surgery was consulted for potential endoscopy, patient did receive 2 units of packed RBCs and his current hemoglobin is 7.8. Review of Systems General: Reports: 10 or more systems reviewed and unremarkable except in HPI and below Meds/Allergies Home Medications and Allergies Allergies Allergy/AdvReac Type Severity Reaction Status Date / Time aspirin Allergy ADR-Seizure Verified 06/02/20 07:06 Current Medications Current Medications Generic Name Dose Route Start Last Admin Trade Name Freq PRN Reason Stop Dose Admin Sodium Chloride 1,000 mls @ 100 mls/hr 06/02/20 01:58 06/02/20 04:13 Sodium Chloride 0.9% IV 100 mls/hr .Q10H KAMI Administration Morphine Sulfate 4 mg 06/02/20 01:58 06/02/20 04:14 Morphine IVP 4 mg Q4H PRN Administration pain PFSH Acute PFSH: Medical History Migraine headache Surgical History No pertinent past surgical history Family History Denies family history of Bleeding disorder Lung disease Cancer Social History Smoking and tobacco status: current some day smoker cigarettes Housing: Other Details: Currently staying at [facility] Sexually active: Yes Additional social history: Denies current alcohol or drug use. Only thing he says he is ever taken is hydrocodone for migraines and that was his 's. States incarceration stemmed from issues with his . Consider self heterosexual. Denies long-term relationship. Vitals/I&O/Wt Last Vital Signs Temp 97.8 F 06/02/20 04:27 Pulse 79 06/02/20 04:27 Resp 18 06/02/20 04:27 BP 132/81 06/02/20 04:27 Pulse Ox 99 06/02/20 04:27 06/01/20 06/01/20 06/02/20 14:59 22:59 06:59 Intake Total 0 / 0 790 / 790 Output Total 650 / 650 Balance 0 / 0 140 / 140 Weight last 48 hrs Weight 150 lb Physical Exam Narrative: EXAM NARRATIVE: Patient is conscious alert oriented X3 BMI 23.5 Head and neck examination PERRLA no masses no cervical lymphadenopathy no jaundice Cardiac examination audible S1-S2 no murmurs no gallops no arrhythmias Chest is clear bilateral,abscence of Rhonchi or wheezes,no surgical emphysema Abdomen nontender nondistended soft no organomegaly guarding or rigidity/no signs of peritonitis Extremities no cyanosis no clubbing no edema A&P Assessment and plan (1) GI bleed: Plan of care; After thorough history and physical examination and reviewing the chart, plan to perform a diagnostic esophagogastroduodenoscopy with possible biopsy. I discussed with the patient in detail the risk,benefits,alternatives and indications.The risk of aspiration, bleeding, soft tissue injury, perforation of the stomach/esophagus and other potential concomitant complications were explained to the patient in details.The patient understood this well and did agree to proceed. Rationale was carefully and clearly discussed with the patient.Appropriate informed consent have been reviewed and signed All questions have been answered and all concerns have been addressed to patient's satisfaction. At some point down the road patient should benefit from a colonoscopy Status: Acute Qualifiers: GI bleed type/associated pathology: unspecified gastrointestinal hemorrhage type Qualified Code(s): K92.2 - Gastrointestinal hemorrhage, unspecified Consult Attestations Medical Necessity Statement: Patient will require inpatient hospitalization past 2 midnights for continued resuscitation and monitoring. And potential blood transfusion. Time Spent in Patient Care: (>than 50% of time spent in counselling and/or direct pt care on unit) . Coding Level of Care Code Acute Certified Residential Medication Aide for [facility] Fwd Diagnoses GI bleed K92.2 GI bleed type/associated pathology: unspecified gastrointestinal hemorrhage type
[2020-06-02] MEDS: tuberculin 5 unit/0.1 mL (per dose) INTRADERMA (06:40)
[2020-06-02 07:41] LABS: Procalcitonin 0.29 ng/mL (0-0.5); Thyroid Stimulating Hormone 1.87 uIU/mL (0.27-4.20); Vitamin B12 960 pg/mL (232-1245)
[2020-06-02 07:52] LABS: C Reactive Protein 103.1 mg/L (0.0-4.9); Iron 87 ug/dL (59-158); Percent Saturation 43.2 % (20-50); Total Iron Binding Capacity 201 mcg/dl; Unsaturated Iron Binding 114 ug/dL (112-347); Uric Acid 5.2 mg/dL (3.4-7.0)
--- NOTE | 2020-06-02 08:15 | ANES.PREANE2 ---
Pre-Anesthetic Assessment Pre-Anesthetic Assessment: Height/Weight: Height 1.7 m Weight 68.039 kg Temp Pulse Resp BP Pulse Ox 97.6 F 93 18 147/75 91 06/02/20 08:00 06/02/20 08:00 06/02/20 08:00 06/02/20 08:00 06/02/20 08:00 Preop Diagnosis: GI bleed Proposed Procedure: Operation Date: 06/02/20 08:30 Proposed Procedures p EGD(Not Applicable) - Erik Russ MD Was Beta Kian taken within 24 hours: N/A Last Intake: 00:00 Social: Social History: Tobacco and No alcohol Packs per day: 1 Exam: Pre-Anes Outpt Exam: alert, oriented x 3, clear to auscultation bilaterally and regular rate & rhythm Airway: Submandibular: WNL Cervical ROM: WNL MP: 2 Dentition: False History/ROS: No significant history except as noted and No significant complaints Pulmonary: Pulmonary: SOB CV/HEM: CV/HEM: None reported : : None reported Hepatic: Hepatic: None reported GI: GI: None reported Metabolic: Metabolic: None reported Musc/skel: Musc/skel: None reported Neuropsych: Neuropsych: VICTOR (hx migraines) Anesthetic Plan: ASA status: 2 Anesthesia: Anesthesia Evaluation and MAC Risk of > 500 ml blood loss (7ml/kg in children): No Meds/Allergies Current Medications: Current Medications Generic Name Dose Route Start Last Admin Trade Name Freq PRN Reason Stop Dose Admin Sodium Chloride 1,000 mls @ 100 m ls/hr 06/02/20 01:58 06/02/20 04:13 Sodium Chloride 0.9% IV 100 mls/hr .Q10H KAMI Administration Additional Medication Information: Aspirin for pain or migraine when needed, not daily. Has taken ibuprofen but not recently due to COVID warnings. PFSH Anesthesia PFSH: Medical History Migraine headache Surgical History No pertinent past surgical history Family History Denies family history of Bleeding disorder Lung disease Cancer Social History Smoking and tobacco status: current some day smoker cigarettes Housing: Other Details: Currently staying at [facility] Sexually active: Yes Additional social history: Denies current alcohol or drug use. Only thing he says he is ever taken is hydrocodone for migraines and that was his 's. States incarceration stemmed from issues with his . Consider self heterosexual. Denies mcc relationship. Data Anesthesia CBC & Chem 7: 06/02/20 04:46 06/01/20 19:30 Other Labs: Laboratory Results - last 48 hr 06/01/20 06/01/20 06/01/20 19:30 19:30 21:06 WBC 14.2 H RBC 1.77 L Hgb 5.0 L* Hct 15.9 L* MCV 89.8 MCH 28.2 MCHC 31.4 RDW 15.5 H Plt Count 198 MPV 10.7 H Neut % (Auto) 83.1 Lymph % (Auto) 5.9 [place] % (Auto) 5.4 Eos % (Auto) 0.1 Baso % (Auto) 0.1 Neut # (Auto) 11.77 H Lymph # (Auto) 0.8 [place] # (Auto) 0.8 Eos # (Auto) 0.0 Baso # (Auto) 0.0 Nucleated RBC % (auto) 0.7 Nucleated RBCs # 0.1 Sodium 122 L Potassium 4.5 Chloride 87 L Carbon Dioxide 23 Anion Gap 16.5 BUN 24 H Creatinine 0.6 L GFR Calculation 137.9 H Glucose 96 Calculated Osmolality 258 L Uric Acid Calcium 8.9 Iron TIBC % Saturation Unsat Iron Binding Total Bilirubin 0.2 AST 28 ALT 16 Alkaline Phosphatase 207 H C-Reactive Protein Total Protein 6.4 L Albumin 3.6 Globulin 2.8 Vitamin B12 Procalcitonin TSH SARS-CoV-2 Ag (Rapid) Blood Type O Positive Rho(D) Type Positive Antibody Screen Negative Crossmatch See Detail 06/01/20 06/02/20 06/02/20 22:43 04:45 04:46 WBC 11.7 H RBC 2.68 L Hgb 7.8 L D Hct 24.0 L D MCV 89.6 MCH 29.1 MCHC 32.5 RDW 14.8 Plt Count 161 MPV 10.9 H Neut % (Auto) 81.9 Lymph % (Auto) 5.0 [place] % (Auto) 6.0 Eos % (Auto) 0.5 Baso % (Auto) 0.4 Neut # (Auto) 9.57 H Lymph # (Auto) 0.6 L [place] # (Auto) 0.7 Eos # (Auto) 0.1 Baso # (Auto) 0.1 Nucleated RBC % (auto) 1.1 Nucleated RBCs # 0.1 Sodium Potassium Chloride Carbon Dioxide Anion Gap BUN Creatinine GFR Calculation Glucose Calculated Osmolality Uric Acid 5.2 Calcium Iron 87 TIBC 201 % Saturation 43.2 Unsat Iron Binding 114 Total Bilirubin AST ALT Alkaline Phosphatase C-Reactive Protein 103.1 H Total Protein Albumin Globulin Vitamin B12 960 Procalcitonin 0.29 TSH 1.87 SARS-CoV-2 Ag (Rapid) Negative Blood Type Rho(D) Type Antibody Screen Crossmatch Cardiac Studies: No Data to Display
[2020-06-02] MEDS: sodium chloride 0.9% 1,000 ML 30 ML IV (08:25)
[2020-06-02 09:07] LABS: Add Urine Microscopic? NO
[2020-06-02 09:11] LABS: Erythrocyte Sedimentation Rate 37 mm/hr (0-10)
--- NOTE | 2020-06-02 09:41 | SUR.OPER ---
1ML EPI DILUTED IN 9ML OF NS FLUSH TO A 10ML SOLUTION. 5ML OF SOLUTION INJECTED INTO DISTAL ESOPHAGOUS FOR CONTROL BLEED
[2020-06-02 10:04] LABS: Bilirubin Urine Neg (Negative); Blood Urine Neg (Negative); Glucose Urine UA Norm (Normal); Ketones Urine Negative (Negative); Leukocyte Esterase Urine Negative (Negative); Nitrate Urine Negative (Negative); Protein Urine Neg (Negative); Urine Appearance Clear (CLEAR); Urine Color Yellow (Yellow); Urobilinogen Urine Norm (Negative); pH Urine 5 (5-7)
[2020-06-02 10:19] LABS: Urine Creatinine 73 mg/dL (39-259)
[2020-06-02] MEDS: sucralfate 1 gm/10 mL Oral Liq UDC PO ×3 (10:24→22:45)
[2020-06-02] MEDS: acetaminophen 325 mg Tablet 650 MG PO (10:28)
[2020-06-02 10:48] LABS: Urine Random Sodium < 10 mmol/L
[2020-06-02 13:05] LABS: INR 1.25 (0.8-1.2)
[2020-06-02 13:06] LABS: Partial Thromboplastin Time 43.1 SECONDS (23.9-36.7)
[2020-06-02 13:18] LABS: Basophils % 0.4 %; Eosinophils % 0.3 %; Hematocrit 22.8 % (42.0-52.0); Hemoglobin 7.5 g/dL (11.7-16.6); Lymphocytes # 0.5 10^3/uL (0.8-4.8); Lymphocytes % 4.6 %; Mean Corpuscular HGB Conc 32.9 g/dL (30.0-36.0); Mean Platelet Volume 10.9 fL (7.4-10.4); Monocytes # 0.6 10^3/uL (0.2-0.9); Monocytes % 5.4 %; Neutrophils # 8.99 10^3/uL (1.8-7.7); Neutrophils % 83.5 %; Nucleated Red Blood Cells # 0.1 /100WBC; Platelet Count 170 10^3/cmm (130-400); Red Blood Count 2.59 10^6/uL (4.1-5.3); Red Cell Distribution Width 15.1 % (12.1-15.1); White Blood Count 10.8 10^3/uL (4.0-10.0)
[2020-06-02 13:53] LABS: HIV 1 & 2 Antibody Non-Reactive (Non-Reactiv); HIV 1 & 2 Antigen Non-Reactive (Non-Reactiv)
[2020-06-02 14:00] LABS: Folate Level 3.2 ng/mL (4.5-32.2)
[2020-06-02 14:16] LABS: Slide Review Slide Review Perform
[2020-06-02] MEDS: TRAMadol 50 mg Tablet PO (14:55)
[2020-06-02] MEDS: pantoprazole DR 40 mg Tablet PO (17:23)
--- NOTE | 2020-06-02 19:17 | P.PN_ITS ---
Subjective Subjective: Interval history: ovenright labs and H& P reveiwed, UGIE today showed a bleeding duodenal ulcer which explains the marcy and acute blood loss anemia. Post procedure patient is doing well, no new complaints, Hb at 7.8 now. Medications: Reviewed: Yes Vitals/I&O/Wt Last Vital Signs Temp 97.7 F 06/02/20 15:38 Pulse 85 06/02/20 15:50 Resp 18 06/02/20 15:38 BP 134/79 06/02/20 15:38 Pulse Ox 92 06/02/20 15:50 06/02/20 06/02/20 06/02/20 06:59 14:59 22:59 Intake Total 790 / 790 1268.333 / 1268.333 650 / 1918.333 Output Total 650 / 650 1700 / 1700 300 / 2000 Balance 140 / 140 -431.667 / -431.667 350 / -81.667 Weight last 48 hrs Weight 68.039 kg Physical Exam Narrative: EXAM NARRATIVE: GEN: Awake, alert and oriented, no acute distress CVS: S1S2 N RS: CTA B/L Abd: Soft, nt/nd , bs+ REGIONAL PLANNER: no focal neuro deficits Data : 06/02/20 12:10 06/01/20 19:30 A&P Assessment and plan (1) GI bleed: Status: Acute Qualifiers: GI bleed type/associated pathology: unspecified gastrointestinal hemorrhage type Qualified Code(s): K92.2 - Gastrointestinal hemorrhage, unspecified (2) Gastritis and gastroduodenitis: Status: Acute (3) Esophagitis: Status: Acute (4) Jejunitis: Status: Acute (5) Adenopathy: Status: Acute (6) History of incarceration: Status: Acute (7) Hyponatremia: Status: Acute (8) Severe anemia: Status: Acute (9) Duodenal ulcer: Status: Acute (10) Pneumonia: Status: Acute Qualifiers: Pneumonia type: due to unspecified organism Laterality: left Lung location: unspecified part of lung Qualified Code(s): J18.9 - Pneumonia, unspecified organism (11) Nicotine dependence, cigarettes, uncomplicated: Status: Chronic Additional A&P Information # UGI bleed from duodenal ulcer with additional findings of duodenitis and jejunitis S/p UGIE today Continue protonix and carafate appreciate surgery recommendations # Anemia due to acute blood loss Monitor for ongoing marcy Hb at 5 on admisison, improved to 7.5, received PRBC transfusion. Continue to mo nitor, transfuse if drops less than 7 # incidentally discovered LAD medistinal area and CT changes of possible granulomatous disease Significant history given h/o incarceration HIV serology NR PPD was placed last night, needs to be interpreted with caution as negative test does not rule out active TB Would need sputum AFB smear and PCR x 3 , however patient is not producing any sputum or reporting any respiratory symptoms. WOuld not want to induce sputum at this time given recent GI bleeding. Inducing sputum will induce cough which can lead to changes in intrabdominal pressure, which should be avoided with recent bleeding and active ulcer Pleural fluid does not appear significant enough to be safely accessed via thoracentesis Lymph node biopsy remains a possibility, however will likely need to be perfromed bronchoscopically- will likely need pulm assessment once active issues resolve. Biopsy will additionally help evaluet for underlying malignancy as the cause. Will send urine histoplasma Ag as this can cause similar findings. Full code Inpatient admission Transfusion blood Serial H&H TIBC, B12, folate, coagulation studies Check sed rate, CRP, ESR, procalcitonin Hold any antibiotic coverage for the possibility of pneumonia presently given lack of respiratory symptoms Check HIV and PPD Check TSH, uric acid, urine electrolytes Surgical consultation for the duration of endoscopy for GI bleed and even potentially biopsy of adenopathy-Dr. Russ was notified from the ER N.p.o. for possibility of procedure today after blood is transfused PPI twice daily Consider reviewing CT imaging with radiology located here at [facility] to evaluate for second read and or any sources of potential lymph node biopsy Will need arrangements for outpatient follow-up Supportive care otherwise Plans discussed with patient and he was given an opportunity to ask questions Attestations Medical Necessity Statement*: GI bleeding, acute blood loss anemia needing tranfusion, needs to be closely monitored for re bleeding and HB checks Coding Level of Care Code Acute 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
[2020-06-03] VITALS (16 sets, daily range): BP systolic 121–168; BP diastolic 73–94; PULSE 77–101; RESP 16–19; TEMP 36.4–37.7; O2SAT 90–97
[2020-06-03] MEDS: sodium chloride 0.9% 1,000 ML 100 ML IV ×2 (02:00→07:20)
[2020-06-03] MEDS: sucralfate 1 gm/10 mL Oral Liq UDC PO ×4 (04:35→20:46)
[2020-06-03 05:19] LABS: Basophils % 0.4 %; Eosinophils % 0.3 %; Lymphocytes # 0.7 10^3/uL (0.8-4.8); Lymphocytes % 6.1 %; Mean Corpuscular HGB Conc 31.7 g/dL (30.0-36.0); Mean Corpuscular Volume 91.3 fL (80-94); Mean Platelet Volume 11.1 fL (7.4-10.4); Monocytes # 0.6 10^3/uL (0.2-0.9); Monocytes % 5.5 %; Neutrophils # 8.77 10^3/uL (1.8-7.7); Neutrophils % 79.9 %; Nucleated Red Blood Cells # 0.2 /100WBC; Nucleated Red Blood Cells % 2.2 %; Platelet Count 156 10^3/cmm (130-400); Red Blood Count 2.07 10^6/uL (4.1-5.3); Red Cell Distribution Width 15.4 % (12.1-15.1)
[2020-06-03 05:36] LABS: Hematocrit 18.9 % (42.0-52.0)
[2020-06-03 05:46] LABS: Alanine Aminotransferase 12 U/L (0-41); Albumin Level 2.8 g/dL (3.5-5.2); Alkaline Phosphatase 220 IU/L (40-130); Anion Gap 14.9 (5-19); Aspartate Amino Transferase 31 U/L (0-40); Blood Urea Nitrogen 23 mg/dL (6-20); Calcium 8.1 mg/dL (8.5-10.5); Carbon Dioxide 21 mmol/L (22-29); Chloride 94 mmol/L (98-107); Globulin 2.4 g/dL (1.3-4.6); Glomerular Filtration Rate 137.9 mL/min (90-130); Glucose 98 mg/dL (65-115); Osmolality Calculated 266 mOsm/kg (285-295); Potassium 3.9 mmol/L (3.5-5.1); Sodium 126 mmol/L (136-145); Total Bilirubin 0.3 mg/dL (0.15-1.2); Total Protein 5.2 g/dL (6.6-8.7)
[2020-06-03 06:26] LABS: H. Pylori / CLO Test Negative
[2020-06-03] MEDS: TRAMadol 50 mg Tablet PO ×2 (07:18→12:45)
[2020-06-03] MEDS: acetaminophen 325 mg Tablet 650 MG PO ×2 (07:29→16:41)
[2020-06-03] MEDS: pantoprazole DR 40 mg Tablet PO ×2 (07:30→17:08)
--- NOTE | 2020-06-03 08:20 | PC.RESP ---
SMOKING CESSATION INFORMATION SENT TO PATIENT.
--- NOTE | 2020-06-03 10:11 | PC.NURSE ---
Transfusion started PRBC, see TAR for further details.
--- NOTE | 2020-06-03 12:05 | P.PN_ITS ---
Subjective Subjective: Interval history: Mr. Schaeffer is feeling fine. When I met him in the morning, he denied any, melena, any bright red blood per rectum. His H&H has dropped to 6/18 from 7.5/. Current plan is to transfuse 2 units PRBC. Vitals and labs have been reviewed Medications: Reviewed: Yes Vitals/I&O/Wt Last Vital Signs Temp 97.6 F 06/03/20 11:23 Pulse 80 06/03/20 11:23 Resp 18 06/03/20 11:23 BP 134/77 06/03/20 11:23 Pulse Ox 97 06/03/20 11:23 06/02/20 06/03/20 06/03/20 22:59 06:59 14:59 Intake Total 1770 / 3038.333 480 / 3518.333 773.333 / 773.333 Output Total 550 / 2250 275 / 275 Balance 1220 / 788.333 480 / 1268.333 498.333 / 498.333 Weight last 48 hrs Weight 68.039 kg Physical Exam Narrative: EXAM NARRATIVE: EXAM NARRATIVE: GEN: Awake, alert and oriented, no acute distress CVS: S1S2 N RS: CTA B/L Abd: Soft, nt/nd , bs+ 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 Current plan is to transfuse 2u PRBC and continue to monitor H/H. Continue protonix and carafate appreciate surgery recommendations # Anemia due to acute blood loss Monitor for ongoing marcy Hb at 5 on admisison, improved to 7.5, has dropped today to 6. He has received PRBC transfusion. Continue to monitor, transfuse as needed. #Leukocytosis likely reactive: Patient is afebrile, hemodynamically stable. Suspicion for infection is low. Hence we have not started on any antibiotic. We will continue to monitor the CBC for now. #Hyponatremia: Likely hypovolemic hyponatremia: Serum sodium is improved to 126 from admission serum sodium of 122. Patient has no symptoms of hyponatremia. We will continue to carry on with IV hydration. Continue to monitor serum sodium. #incidentally discovered LAD medistinal area and CT changes of possible granulomatous disease Significant history given h/o incarceration. HIV serology NR PPD was placed on . We will follow-up with the PPD read. PPD read needs to be interpreted with caution as negative test does not rule out active TB. Would need sputum AFB smear and PCR x 3 , however patient is not producing any sputum or reporting any respiratory symptoms. WOuld not want to induce sputum at this time given recent GI bleeding. Inducing sputum will induce cough which can lead to changes in intrabdominal pressure, which should be avoided with recent bleeding and active ulcer Pleural fluid does not appear significant enough to be safely accessed via thoracentesis Lymph node biopsy remains a possibility, however will likely need to be perfromed bronchoscopically- will likely need pulm assessment once active issues resolve. Biopsy will additionally help evaluate for underlying malignancy as the cause. Follow urine histoplasma Ag as this can cause similar findings. Full code Attestations Medical Necessity Statement*: Patient needs to be in hospital for the management of anemia due to GI blood loss. Coding Level of Care Code Acute Internet Sourcer for [facility] Fwd Diagnoses Duodenal ulcer K26.9 Severe anemia D64.9 GI bleed K92.2 GI bleed type/associated pathology: unspecified gastrointestinal hemorrhage type
[2020-06-03] MEDS: sodium chloride 0.9% (100 ml) 100 ML (13:58)
--- NOTE | 2020-06-03 16:46 | PC.NURSE ---
urine sample sent to lab.
[2020-06-04] VITALS (7 sets, daily range): BP systolic 120–175; BP diastolic 70–94; PULSE 78–124; RESP 16–20; TEMP 36.6–37.6; O2SAT 90–97
[2020-06-04] MEDS: TRAMadol 50 mg Tablet PO ×3 (01:25→20:38)
[2020-06-04] MEDS: sucralfate 1 gm/10 mL Oral Liq UDC PO ×4 (03:28→20:39)
--- NOTE | 2020-06-04 05:26 | PC.NURSE ---
SHIFT SUMMARY Has had a good night. Pleasant. Medicated X1 with po Tramadol for c/o pain in left back. Says it works well. c/o some weakness when up but denies dizziness.
[2020-06-04 05:40] LABS: Hematocrit 27.6 % (42.0-52.0); Mean Corpuscular HGB Conc 32.6 g/dL (30.0-36.0); Mean Corpuscular Hemoglobin 28.4 pg (28.0-34.0); Mean Corpuscular Volume 87.1 fL (80-94); Mean Platelet Volume 11.1 fL (7.4-10.4); Platelet Count 108 10^3/cmm (130-400); Red Blood Count 3.17 10^6/uL (4.1-5.3); Red Cell Distribution Width 16.9 % (12.1-15.1); White Blood Count 11.9 10^3/uL (4.0-10.0)
[2020-06-04 06:40] LABS: Slide Review Slide Review Perform
[2020-06-04 06:41] LABS: Absolute Neutrophil 10.4 10^3/cmm (1.4-6.5); Absolute Segmented Neutrophil 9.9 10/cmm (1.6-7.1); Band Neutrophils Absolute 0.5 10^3/cmm (0.0-1.2); Corrected White Blood Count 11.3 10^3/cmm (4.8-10.8); Lymphocytes 5 %; Lymphocytes Absolute 0.6 10^3/cmm (1.2-3.4); Monocytes Absolute 0.4 10^3/cmm (0.1-0.6); Platelet Estimate Decreased (Normal); Segmented Neutrophils 83 %; Total Cells Counted 100 (0-100)
[2020-06-04 06:42] LABS: Anisocytosis 1+; Giant Platelets Trace; Polychromasia Trace
[2020-06-04] MEDS: acetaminophen 325 mg Tablet 650 MG PO ×2 (08:15→15:55)
[2020-06-04] MEDS: pantoprazole DR 40 mg Tablet PO ×2 (08:15→17:18)
[2020-06-04] MEDS: sodium chloride 0.9% 1,000 ML 30 ML IV (08:15)
--- NOTE | 2020-06-04 09:02 | PC.NURSE ---
Patient sitting up in bed, alert and oriented, reports chronic lower back pain relieved by tylenol, discussed plan of care, verbalizes understanding, denies further questions or concerns.
--- NOTE | 2020-06-04 09:07 | PC.NURSE ---
TB skin test to right forearm has very small red dot, no erythema or hardened skin. Dr. De León notified.
--- NOTE | 2020-06-04 09:49 | PM.PN ---
Subjective Subjective: Interval history: Patient is comfortable this morning. Vitals and labs reviewed. Medications: Reviewed: Yes Medication Review Details: Aspirin for pain or migraine when needed, not daily. Has taken ibuprofen but not recently due to COVID warnings. 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 Currently he is denying any marcy or BRBPR. S/P 2u PRBC transfusion yesterday. H/H.is holding at 05/26 today. We have advanced diet from clear liquids to as tolerated. Continue protonix and carafate appreciate surgery recommendations Status: Acute (2) Severe anemia: Normocytic. Specific type otherwise unknown at the moment. Presumptively GI losses but to be so tolerant of a hemoglobin of 5, I would have expected to see microcytosis indicative of chronic blood loss. May have a mixed picture. Denies report of identified chronic blood loss but was noted to be heme positive with black stool in the emergency room. On specific questioning has taken aspirin and NSAIDs for pain and migraine control but neither of them excessively newly. Clinically this appears to been a slow developing anemia. Abnormality incidentally identified as he did not present with symptoms classic of anemia. Normal platelet count. Status: Acute (3) GI bleed: Evidenced by heme positive melanotic stools. Possible gastritis from NSAIDs. Did have evidence of some jejunitis on CT imaging so this could be another area of loss potentially. No complaints of abdominal pain or epigastric pain. Status: Acute Qualifiers: GI bleed type/associated pathology: unspecified gastrointestinal hemorrhage type Qualified Code(s): K92.2 - Gastrointestinal hemorrhage, unspecified Additional A&P Information #Leukocytosis likely reactive : Is appropiately downtrending. Patient is afebrile, hemodynamically stable. Suspicion for infection is low. Hence we have not started on any antibiotic. We will continue to monitor the CBC for now. #Hyponatremia: Likely hypovolemic hyponatremia: Serum sodium is improved to 126 from admission serum sodium of 122. Patient has no symptoms of hyponatremia. We will continue to carry on with IV hydration. Continue to monitor serum sodium. #incidentally discovered LAD medistinal area and CT changes of possible granulomatous disease Significant history given h/o incarceration. HIV serology NR PPD was placed on . was read today as negative. Quanteron Gold has been sent. PPD read needs to be interpreted with caution as negative test does not rule out active TB. Would need sputum AFB smear and PCR x 3 , however patient is not producing any sputum or reporting any respiratory symptoms. WOuld not want to induce sputum at this time given recent GI bleeding. Inducing sputum will induce cough which can lead to changes in intrabdominal pressure, which should be avoided with recent bleeding and active ulcer Pleural fluid does not appear significant enough to be safely accessed via thoracentesis Lymph node biopsy remains a possibility, however will likely need to be perfromed bronchoscopically- will likely need pulm assessment once active issues resolve. Biopsy will additionally help evaluate for underlying malignancy as the cause. Follow urine histoplasma Ag as this can cause similar findings. Full code Attestations Medical Necessity Statement*: Patient needs to be in hospital for the management of UGIB. 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
--- NOTE | 2020-06-04 09:59 | PC.NURSE ---
Dr. De León notified this nurse to advance diet to regular, see orders for further details.
--- NOTE | 2020-06-04 12:05 | PC.NURSE ---
patient sitting up in bed, denies pain or needs, call light in reach, side rails up x2.
[2020-06-05] VITALS (35 sets, daily range): BP systolic 90–154; BP diastolic 62–89; PULSE 78–127; RESP 16–28; TEMP 36.6–37.9; O2SAT 92–100
[2020-06-05] MEDS: acetaminophen 325 mg Tablet 650 MG PO ×4 (02:19→20:59)
[2020-06-05 03:35] LABS: Basophils % 0.2 %; Eosinophils % 0.1 %; Lymphocytes # 0.4 10^3/uL (0.8-4.8); Lymphocytes % 4.1 %; Mean Corpuscular HGB Conc 31.7 g/dL (30.0-36.0); Mean Corpuscular Hemoglobin 28.4 pg (28.0-34.0); Mean Corpuscular Volume 89.5 fL (80-94); Mean Platelet Volume 11.3 fL (7.4-10.4); Monocytes # 0.4 10^3/uL (0.2-0.9); Monocytes % 4.3 %; Neutrophils # 8.19 10^3/uL (1.8-7.7); Neutrophils % 84.6 %; Nucleated Red Blood Cells # 0.2 /100WBC; Nucleated Red Blood Cells % 2.3 %; Platelet Count 78 10^3/cmm (130-400); Red Blood Count 2.29 10^6/uL (4.1-5.3); Red Cell Distribution Width 17.1 % (12.1-15.1); White Blood Count 9.7 10^3/uL (4.0-10.0)
[2020-06-05 04:08] LABS: Hematocrit 20.5 % (42.0-52.0); Hemoglobin 6.5 g/dL (11.7-16.6)
[2020-06-05 04:09] LABS: Slide Review Slide Review Perform
[2020-06-05] MEDS: TRAMadol 50 mg Tablet PO ×3 (04:20→17:07)
[2020-06-05] MEDS: sucralfate 1 gm/10 mL Oral Liq UDC PO ×4 (04:23→20:59)
--- NOTE | 2020-06-05 04:39 | PC.NURSE ---
CRITICAL LAB Dr Levy was notified of pts H/H of 6.5/20.8 this am. Also notified of pts being tachycardia with getting up to bathroom tonight HR gets up to 140-150 then resolves as soon as back to bed. Otherwise pt has had a good night. Has continued to c/o left back pain. Says feels like is muscular. Has been medicated with po Tylenol and Tramadol tonight. No bleeding has been observed
[2020-06-05] MEDS: pantoprazole DR 40 mg Tablet PO (07:56)
--- NOTE | 2020-06-05 09:29 | XR_ITS ---
WS: [id number] CHEST XRAY TECHNIQUE: Portable chest. CLINICAL INFORMATION: SOB COMPARISON: None. FINDINGS: Heart: Normal cardiac silhouette. Lungs: Small left pleural effusion with left lower lobe atelectasis and consolidation. Recommend amber elation for pneumonia. Right lung is well aerated. Mild chronic emphysematous changes. Bones: Normal visualized bony structures. XR/XR chest 1V portable [id number] IMPRESSION: 1. Small left pleural effusion with left lower lobe atelectasis and consolidat ion. Recommend correlation for pneumonia. 2. Recommend further evaluation with chest CT and follow-up to resolution.
[2020-06-05 10:03] LABS: Procalcitonin 2.54 ng/mL (0-0.5)
[2020-06-05 10:36] LABS: Lactic Sepsis W/Reflex 2.2 mmol/L (0.5-2.2)
[2020-06-05] MEDS: cefTRIAXone 1,000 MG in sodium chloride 0.9% (plus) 50 ML 100 MG IV (11:02)
[2020-06-05] MEDS: sodium chloride 0.9% 1,000 ML 30 ML IV ×2 (11:03→20:57)
[2020-06-05] MEDS: pantoprazole 40 mg SDV IVP ×2 (11:47→20:59)
[2020-06-05] MEDS: sodium chloride 0.9% 1,000 ML 125 ML IV (11:48)
[2020-06-05] MEDS: octreotide 500 MCG in sodium chloride 0.9% (100 ml) 100 ML 10.1 MCG IV ×2 (11:54→20:57)
[2020-06-05 12:03] LABS: Reflex Lactate Order REFLEX LACTIC ORDERD
[2020-06-05] MEDS: phytonadione (ADULT) 10 mg/mL Ampule 1 mL PO (12:22)
--- NOTE | 2020-06-05 12:55 | P.PN_ITS ---
Subjective Subjective: Interval history: Patient overall is fairly doing well yet he does complain of back pain Pathology of the esophageal biopsies showed invasive adenocarcinoma Continues to drop his H&H and has melanotic stools Vitals/I&O/Wt Last Vital Signs Temp 97.9 F 06/05/20 12:06 Pulse 83 06/05/20 12:06 Resp 18 06/05/20 12:06 BP 110/73 06/05/20 12:06 Pulse Ox 99 06/05/20 12:06 06/04/20 06/05/20 06/05/20 22:59 06:59 14:59 Intake Total 240 / 1074 200 / 1274 804 / 804 Output Total 400 / 800 Balance 240 / 674 -200 / 474 803 / 803 Physical Exam Narrative: EXAM NARRATIVE: Patient is conscious alert oriented X3 BMI 23.5 Head and neck examination PERRLA no masses no cervical lymphadenopathy no jaundice Abdomen nontender nondistended soft no organomegaly guarding or rigidity/no signs of peritonitis Data : 06/05/20 03:24 06/03/20 04:36 A&P Assessment and plan (1) GI bleed: Pathology showed : Final Diagnosis Esophagus, distal, biopsy: ?Moderate to poorly differentiated invasive adenocarcinoma. ?Immunohistochemical stains are ordered and will be added as an addendum. Patient will require oncology consultation If continues to have ongoing melanotic stool and if there is a concern about small bowel source patient will require enteroscopy+/-capsule endoscopy. Raise the head of the bed 4-6 inches Frequent small meals through the day Avoid smoking or Chewing Tobacco Avoid excess coffee, tea, and other caffeinated beverages Avoid garments that fit tightly through the abdomen Avoid eating before going to sleep Avoid nonsteroidal anti-inflammatory drugs (NSAIDs) when possible Anti-reflux diet Anti-reflux medications as prescribed Emphasis on weight management I did discuss with the patient about the diagnosis of his esophageal cancer and likely will require chemoradiation, once he becomes more clinically appropriate. Assurance and education All questions have been answered and all concerns have been addressed to patient's satisfaction. Status: Acute Qualifiers: GI bleed type/associated pathology: unspecified gastrointestinal hemorrhage type Qualified Code(s): K92.2 - Gastrointestinal hemorrhage, unspecified Attestations Medical Necessity Statement*: Ongoing inpatient hospitalization past 2 midnights for blood transfusion and monitoring. Time Spent in Patient Care: (>than 50% of time spent in counselling and/or direct pt care on unit) . Coding Level of Care Code Acute Bushel Worker for Chg Fwd Diagnoses GI bleed K92.2 GI bleed type/associated pathology: unspecified gastrointestinal hemorrhage type
--- NOTE | 2020-06-05 13:01 | PM.PN ---
Subjective Subjective: Interval history: Patient is continuing to have black tarry stool, he also spiked temperature.Patient is also extremely diaphoretic, tachycardic. Esophageal biopsy result came back: Moderate to poorly differentiated invasive adenocarcinoma. Our current plan is to transfuse him another 2 units as his H&H has dropped. We are trying to transfer the patient to higher level care for facility for possible angioembolization and other interventions. Vitals and labs have been reviewed Medications: Reviewed: Yes Medication Review Details: Aspirin for pain or migraine when needed, not daily. Has taken ibuprofen but not recently due to COVID warnings. Vitals/I&O/Wt Last Vital Signs Temp 97.9 F 06/05/20 12:55 Pulse 82 06/05/20 12:55 Resp 18 06/05/20 12:55 BP 104/71 06/05/20 12:55 Pulse Ox 100 06/05/20 12:55 06/04/20 06/05/20 06/05/20 22:59 06:59 14:59 Intake Total 240 / 1074 200 / 1274 804 / 804 Output Total 400 / 800 Balance 240 / 674 -200 / 474 803 / 803 Physical Exam Narrative: EXAM NARRATIVE: EXAM NARRATIVE: EXAM NARRATIVE: GEN: Awake, alert and oriented, no acute distress CVS: S1S2 N RS: CTA B/L Abd: Soft, nt/nd , bs+ CLIENT TECHNOLOGIES SPECIALIST: no focal neuro deficits Data : 06/05/20 03:24 06/03/20 04:36 A&P Assessment and plan (1) Esophageal adenocarcinoma: Esophageal biopsy done during upper GI endoscopy have shown Moderate to poorly differentiated invasive adenocarcinoma. We will consult oncology for further management. Status: Acute (2) Duodenal ulcer: # UGI bleed from duodenal ulcer as well as duodenitis and jejunitis S/p UGIE H/H has dropped to 6/ from 7.5/ yesterday. Currently he is denying any marcy or BRBPR. S/P 2u PRBC transfusion yesterday. H/H.is holding at 05/26 today. We have advanced diet from clear liquids to as tolerated. Continue protonix and carafate appreciate surgery recommendations Status: Acute (3) Gastritis and gastroduodenitis: Status: Acute (4) Esophagitis: Continue Protonix 40 mg i.v q12 h daily Status: Acute (5) Severe anemia: Normocytic. Specific type otherwise unknown at the moment. Presumptively GI losses but to be so tolerant of a hemoglobin of 5, I would have expected to see microcytosis indicative of chronic blood loss. May have a mixed picture. Denies report of identified chronic blood loss but was noted to be heme positive with black stool in the emergency room. On specific questioning has taken aspirin and NSAIDs for pain and migraine control but neither of them excessively newly. Clinically this appears to been a slow developing anemia. Abnormality incidentally identified as he did not present with symptoms classic of anemia. Normal platelet count. Status: Acute (6) GI bleed: Evidenced by heme positive melanotic stools. Possible gastritis from NSAIDs. Did have evidence of some jejunitis on CT imaging so this could be another area of loss potentially. No complaints of abdominal pain or epigastric pain. Status: Acute Qualifiers: GI bleed type/associated pathology: unspecified gastrointestinal hemorrhage type Qualified Code(s): K92.2 - Gastrointestinal hemorrhage, unspecified Additional A&P Information # Pneummonia : Patient has cough, x-ray chest left lower lobe atelectasis and consolidation. Currently requiring 2 L oxygen through nasal cannula to maintain a saturation above 95%. Started him on ceftriaxone 1 g IV every 24 hours. #Hyponatremia: Likely hypovolemic hyponatremia: Serum sodium is improved to 126 from admission serum sodium of 122. Patient has no symptoms of hyponatremia. We will continue to carry on with IV hydration. Continue to monitor serum sodium. 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 HIV serology NR PPD was placed on 06/02. was negative. Quanteron Gold: Awaited Follow urine histoplasma Ag: We have called [facility] for transfer. We are awaiting a call back. We will try other higher level of care Full code Attestations Medical Necessity Statement*: Patient needs to be in hospital for management of ongoing GI bleed. Coding Level of Care Code Acute Final Dressing Cutter for [facility] Diagnoses Esophageal adenocarcinoma C15.9 Duodenal ulcer K26.9 Gastritis and gastroduodenitis K29.70; K29.90 Esophagitis K20.9 Severe anemia D64.9 GI bleed K92.2 GI bleed type/associated pathology: unspecified gastrointestinal hemorrhage type
--- NOTE | 2020-06-05 13:55 | P.TS_ITS ---
Transfer Summary Providers Date of Admission: 06/02/20 01:01 Date of Discharge: 06/05/20 Attending Provider at Admission: Desiree Carrero MD Attending Provider at Transfer: Gallo De León MD Anticipated Date of Transfer: Anticipated date of transfer: 06/05/20 Receiving Facility & Provider: Receiving Provider: [] Receiving facility: [] Diagnoses at Discharge Discharge Diagnosis (1) Esophageal adenocarcinoma: Status: Acute (2) Duodenal ulcer: Status: Acute (3) Gastritis and gastroduodenitis: Status: Acute (4) Esophagitis: Status: Acute (5) Severe anemia: Status: Acute (6) GI bleed: Status: Acute Qualifiers: GI bleed type/associated pathology: unspecified gastrointestinal hemorrhage type Qualified Code(s): K92.2 - Gastrointestinal hemorrhage, unspecified Reason for Visit Reason for Visit: Left side back pain Hospital Course Hospital Course: Александр Schaeffer is a 60 year old male who presented to the emergency room with a chief complaint of back pain and leg pain. Patient was recently incarcerated in [facility]. He was there for about 4 months. He was released on parole. He walked a long way and then eventually ended up with a ride here. He has arrangements made to stay at [facility] for about 6 months. He has an electronic monitoring device on his left ankle. Because of all the walking he did his back is been bothering for several weeks. He was released in March. Groin muscles and low back muscles are what bother him the most. He reported fatigue as well as some nausea and vomiting. Work-up in the emergency room included laboratory studies which revealed a hemoglobin of 5. Stool was Hemoccult positive and black in color. Patient himself had not noted black stools or tarry stools. He denies any hematemesis. CTA of the chest abdomen and pelvis was done which showed Mild left middle mediastinum adenopathy in the inferior thorax with moderate to large left retrocrural adenopathy and probable gastrohepatic adenopathy and mild right retrocrural adenopathy. Lymphoma versus metastatic disease. Moderate jaswinder hepatis celiac axis and per iaortic lymphadenopathy consistent with lymphoma versus metastatic disease. Uppper G/I Endoscopy was done for G.I bleed, which showed acute duodenal ulcer, duodenitis, gastritis, reflux gastritis.Esophagus, distal, biopsy:done during upper endoscopy showed ?Moderate to poorly differentiated invasive adenocarcinoma.?Immunohistochemical stains are pending. As part of LAD wok up PPD was done : which is negative, HIV serology is negative,quantiferon gold is pending.Patient has been on PPI as well as has received blood transfusion for severe anemia from G.I Bleed.He has also received FFP 1 Bag as well as Oral Vit K. Patient is a occasional smoker. Patient is bein transferred to [facility] for further management of esophageal malignancy as well for G.I Bleed. Physical Exam Narrative: EXAM NARRATIVE: GEN: Awake, alert and oriented, no acute distress CVS: S1S2 N RS: CTA B/L Abd: Soft, nt/nd , bs+ MUSIC ORCHESTRATOR: no focal neuro deficits TS Data Data Completed and Pending: Completed Studies During Hospitalization Category Date Time Status CT angio chest ab domen pelvis Urgen t Cat Scan 06/01/20 20:54 Completed XR chest 1V jaswinder ble [id number] Stat Exams 06/05/20 09:29 Completed Pathology: Surgic al [PTH] Routine Pth 06/03/20 13:18 Completed Pending at discharge Category Date Time Status ES surgery / GI i mages Routine Exams 06/02/20 09:00 Ordered CBC Auto Diff [Co mplete Blood Count w/Auto] Routine Lab 06/05/20 18:03 Ordered Histoplasma Quant itative AG Routine Lab 06/03/20 16:36 Received Nxplcoqrbrr-IH-Qx ld Plus Stat Lab 06/03/20 17:40 Received Labs from last 24 hours 06/05/20 06/05/20 06/05/20 13:14 10:09 05:39 WBC RBC Hgb Hct MCV MCH MCHC RDW Plt Count MPV Neut % (Auto) Lymph % (Auto) [place] % (Auto) Eos % (Auto) Baso % (Auto) Neut # (Auto) Lymph # (Auto) [place] # (Auto) Eos # (Auto) Baso # (Auto) Nucleated RBC % (a uto) Nucleated RBCs # Lactic Acid 2.2 Lactic Acid (Sepsi s) Pending Procalcitonin Blood Type O Positive Rho(D) Type Positive Antibody Screen Negative Crossmatch See Detail 06/05/20 06/05/20 03:24 03:24 WBC 9.7 RBC 2.29 L Hgb 6.5 L* Hct 20.5 L* MCV 89.5 MCH 28.4 MCHC 31.7 RDW 17.1 H Plt Count 78 L MPV 11.3 H Neut % (Auto) 84.6 Lymph % (Auto) 4.1 [place] % (Auto) 4.3 Eos % (Auto) 0.1 Baso % (Auto) 0.2 Neut # (Auto) 8.19 H Lymph # (Auto) 0.4 L [place] # (Auto) 0.4 Eos # (Auto) 0.0 Baso # (Auto) 0.0 Nucleated RBC % (a uto) 2.3 Nucleated RBCs # 0.2 Lactic Acid Lactic Acid (Sepsi s) Procalcitonin 2.54 H Blood Type Rho(D) Type Antibody Screen Crossmatch Vitals: Last Vital Signs Temp 98.4 F 06/05/20 13:34 Pulse 83 06/05/20 13:34 Resp 18 06/05/20 13:34 BP 107/70 06/05/20 13:34 Pulse Ox 99 06/05/20 13:05 TS Medications Medications Home Medications No Known Home Medications 06/03/20 [History Confirmed 06/03/20] Active Medications Acetaminophen (Tylenol) 650 mg PO Q6H PRN PRN Reason: Mild/Mod Pain Or Temp >/= 101 Last Admin: 06/05/20 07:57 Dose: 650 mg Documented by: Sodium Chloride (Sodium Chloride 0.9%) 1,000 mls @ 30 mls/hr IV .Q24H KAMI Last Admin: 06/05/20 11:03 Dose: 30 mls/hr Documented by: Ceftriaxone Sodium 1,000 mg/ (Sodium Chloride) 50 mls @ 100 mls/hr IV Q24H KAMI; Protocol Last Admin: 06/05/20 11:02 Dose: 100 mls/hr Documented by: Octreotide Acetate 500 mcg/ (Sodium Chloride) 101 mls @ 10.1 mls/hr IV .Q10H KAMI Stop: 06/07/20 11:59 Last Admin: 06/05/20 11:54 Dose: 50 mcg/hr, 10.1 mls/hr Documented by: Sodium Chloride (Sodium Chloride 0.9%) 1,000 mls @ 125 mls/hr IV .Q8H KAMI Last Admin: 06/05/20 11:48 Dose: 125 mls/hr Documented by: Lorazepam (Ativan) 0.5 mg PO TID PRN PRN Reason: ANXIETY Ondansetron HCl (Zofran) 4 mg IVP Q6H PRN PRN Reason: NAUSEA AND VOMITING Pantoprazole Sodium (Protonix) 40 mg IVP Q12H [facility] Last Admin: 06/05/20 11:47 Dose: 40 mg Documented by: Sucralfate (Carafate Oral Liq) 1 gm PO Q6H KAMI Last Admin: 06/05/20 07:57 Dose: 1 gm Documented by: Tramadol HCl (Ultram) 50 mg PO Q4H PRN PRN Reason: MODERATE PAIN Last Admin: 06/05/20 11:47 Dose: 50 mg Documented by: Discharge Plan Discharge Patient Disposition: Home Condition: Stable Prescriptions: No Action No Known Home Medications RF: 0 Discharge Diet: Regular Discharge Activity: Increase activity as tolerated Patient Instructions: Low Back Strain (ED) Transfer Attestations Time Spent in Transfer Care*: greater than 30 min Specific Discharge Activities: Specific discharge activities: educating patient, educating and/or supporting family/caregiver, discussing with pcp/other providers, discussing with senior case manager/social workers/dc planners, documenting/other paperwork and evaluating patient/reviewing data Status at Transfer: Cognitive status at transfer: cognitively intact , Behavioral status at transfer: cooperative , Functional status at transfer: independent ambulation Overall status at transfer: patient is progressing back to baseline Quality Metrics Clinical Quality Measures: During this hospital stay, did patient experience: None Coding Level of Care Code Acute It Support Specialist [facility] Diagn[facility] Esophageal adenocarcinoma C15.9 Duodenal ulcer K26.9 Gastritis and gastroduodenitis K29.70; K29.90 Esophagitis K20.9 Severe anemia D64.9 GI bleed K92.2 GI bleed type/associated pathology: unspecified gastrointestinal hemorrhage type
[2020-06-05 14:10] LABS: Lactic Acid level (Lactate) 2.5 mmol/L (0.5-2.2)
[2020-06-05] MEDS: FUROsemide 10 mg/mL SDV 4mL 40 MG IVP (18:02)
[2020-06-05 18:10] LABS: Basophils % 0.3 %; Eosinophils % 0.1 %; Hematocrit 31.2 % (42.0-52.0); Hemoglobin 9.7 g/dL (11.7-16.6); Lymphocytes # 0.7 10^3/uL (0.8-4.8); Lymphocytes % 6.4 %; Mean Corpuscular HGB Conc 31.1 g/dL (30.0-36.0); Mean Corpuscular Hemoglobin 28.4 pg (28.0-34.0); Mean Corpuscular Volume 91.5 fL (80-94); Mean Platelet Volume 12.8 fL (7.4-10.4); Monocytes # 0.2 10^3/uL (0.2-0.9); Neutrophils # 9.62 10^3/uL (1.8-7.7); Neutrophils % 85.8 %; Nucleated Red Blood Cells # 0.3 /100WBC; Nucleated Red Blood Cells % 2.5 %; Platelet Count 76 10^3/cmm (130-400); Red Blood Count 3.41 10^6/uL (4.1-5.3); Red Cell Distribution Width 16.1 % (12.1-15.1); White Blood Count 11.2 10^3/uL (4.0-10.0)
--- NOTE | 2020-06-05 18:18 | PC.NURSE ---
Transfer note Patient report called to Anjelica KATE with [facility].
[2020-06-05 18:44] LABS: Slide Review Slide Review Perform
--- NOTE | 2020-06-05 18:44 | PC.NURSE ---
Prn note Upon entering room patient noted to be shivering, temp 101.1, noted to have manual bp first time 90/60, hr 140, o2 at 3l 84. Physician in room, ordered to give 40 mg IV lasix, reynoso placed, abg ordered and patient placed on bipap. 1829 Physician in room, patient not tolerating bipap, removed and placed on oxymask at 8l. Per physician, transfer patient to ICU, patient not transferring to [facility] this day. Currently awaiting an ICU bed.
--- NOTE | 2020-06-05 18:59 | PC.NURSE ---
ICU transfer Patient report called to LAVINIA Alas
[2020-06-05] MEDS: vancomycin 1,000 MG in sodium chloride 0.9% 250 ML 250 MG IV (21:03)
--- NOTE | 2020-06-05 21:15 | ECG_ITS ---
[facility] Test Date: 2020-06-05 Pat Name: Александр Schaeffer Department: Room: ICU08 Gender: Male [place]: : 1960 Requested By: Gallo De León Order Number: [id number] Dany MD: Jessica Ingram M.D. Measurements Intervals Hiram Rate: 102 P: 38 OK: 106 QRS: 3 QRSD: 98 T: 120 QT: 340 QTc: 443 Interpretive Statements SINUS TACHYCARDIA WITH SHORT OK INTERVAL Diffuse nonspecific T wave changes Short OK interval with delta wave may suggest preexcitation POSSIBLE RIGHT VENTRICULAR CONDUCTION DELAY [RSR (QR) IN V1/V2] INFERIOR MYOCARDIAL INFARCTION [40+ ms Q WAVE AND/OR ST/T ABNORMALITY IN II/aVF], PROBABLY OLD No previous ECG available for comparison Electronically Signed On 06-06-2020 21:33:06 CDT by Jessica Ingram M.D. [id number]
[2020-06-05 22:05] LABS: Troponin(5th) Baseline 597 ng/L (0-15)
[2020-06-05] MEDS: piperacillin-tazobactam 3.375 GM in sodium chloride 0.9% (plus) 50 ML IV (22:22)
[2020-06-05 23:27] LABS: Troponin 5 2HR Delta 7.8 ABS# (0-10)
[2020-06-05 23:29] LABS: Troponin 5 2HR 604.8 ng/L (0-15)
[2020-06-06] VITALS (15 sets, daily range): BP systolic 85–112; BP diastolic 58–76; PULSE 71–85; RESP 13–20; TEMP 36–36.7; O2SAT 93–100
[2020-06-06] MEDS: sucralfate 1 gm/10 mL Oral Liq UDC PO ×3 (02:27→16:32)
[2020-06-06 03:55] LABS: Basophils % 0.2 %; Eosinophils % 0.1 %; Hematocrit 24.5 % (42.0-52.0); Hemoglobin 7.8 g/dL (11.7-16.6); Lymphocytes # 0.4 10^3/uL (0.8-4.8); Lymphocytes % 3.1 %; Mean Corpuscular HGB Conc 31.8 g/dL (30.0-36.0); Mean Corpuscular Hemoglobin 28.5 pg (28.0-34.0); Mean Corpuscular Volume 89.4 fL (80-94); Mean Platelet Volume 13.3 fL (7.4-10.4); Monocytes # 0.6 10^3/uL (0.2-0.9); Monocytes % 5.3 %; Neutrophils # 9.71 10^3/uL (1.8-7.7); Neutrophils % 84.9 %; Nucleated Red Blood Cells # 0.1 /100WBC; Nucleated Red Blood Cells % 0.7 %; Platelet Count 50 10^3/cmm (130-400); Red Blood Count 2.74 10^6/uL (4.1-5.3); Red Cell Distribution Width 16.1 % (12.1-15.1); White Blood Count 11.4 10^3/uL (4.0-10.0)
[2020-06-06] MEDS: vancomycin 1,000 MG in sodium chloride 0.9% 250 ML 250 MG IV ×2 (04:11→12:22)
[2020-06-06 04:13] LABS: Blood Urea Nitrogen 22 mg/dL (6-20); Calcium 8.3 mg/dL (8.5-10.5); Carbon Dioxide 24 mmol/L (22-29); Chloride 93 mmol/L (98-107); Glomerular Filtration Rate 76.5 mL/min (90-130); Glucose 130 mg/dL (65-115); Osmolality Calculated 277 mOsm/kg (285-295); Sodium 131 mmol/L (136-145)
[2020-06-06] MEDS: acetaminophen 325 mg Tablet 650 MG PO ×2 (04:27→10:05)
[2020-06-06 04:31] LABS: Troponin 5 6HR 526.6 ng/L (0-15)
[2020-06-06 04:57] LABS: Slide Review Slide Review Perform
[2020-06-06] MEDS: piperacillin-tazobactam 3.375 GM in sodium chloride 0.9% (plus) 50 ML IV ×2 (05:41→16:32)
--- NOTE | 2020-06-06 07:16 | USCV_ITS ---
Александр Schaeffer Age: 60 Gender: M : 1960 Exam Date: 06/06/2020 06:28 Ordering Phys: Gallo De León MD Technologist: Jayme Rodriguez Exam Location: [facility] [place] Indication: SOB BP: 110 / 77 HR: 68 Rhythm: Sinus Technical Quality: Good MEASUREMENTS (Male / Female) Normal Values 2D ECHO LV Diastolic Diameter PLAX 3.5 cm 4.2 - 5.9 / 3.9 - 5.3 cm LV Systolic Diameter PLAX 2.6 cm IVS Diastolic Thickness 0.9 cm 0.6 - 1.0 / 0.6 - 0.9 cm IVS Systolic Thickness 0.9 cm LVPW Diastolic Thickness 0.9 cm 0.6 - 1.0 / 0.6 - 0.9 cm LVPW Systolic Thickness 1.0 cm LVOT Diameter 2.0 cm LV Ejection Fraction 2D Teich 53.0 % LV Ejection Fraction MOD 2C 66.7 % LV Ejection Fraction 2C AL 66.7 % LA Diameter 3.1 cm LA Width 4.0 cm LA Height 4.9 cm RA Width 3.7 cm RA Height 5.0 cm M-MODE LV Diastolic Diameter MM 4.1 cm 4.2 - 5.9 / 3.9 - 5.3 cm LV Systolic Diameter MM 2.7 cm LV Ejection Fraction MM Teich 62.9 % IVS Diastolic Thickness MM 0.9 cm 0.6 - 1.0 / 0.6 - 0.9 cm IVS Systolic Thickness MM 1.1 cm LVPW Diastolic Thickness MM 0.8 cm 0.6 - 1.0 / 0.6 - 0.9 cm LVPW Systolic Thickness MM 1.4 cm RV Diastolic Diameter MM 1.9 cm Aortic Annulus Diameter 3.8 cm LA Ao Ratio MM 1.0 MV E Point Septal Separation 1.1 cm DOPPLER AV Peak Velocity 158.0 cm/s LVOT Peak Velocity 107.0 cm/s AV Area Cont Eq vti 1.8 cm squared AV Area Cont Eq pk 2.1 cm squared MV Area PHT 5.0 cm squared Mitral E to A Ratio 1.1 MV E' Velocity 37.0 cm/s Mitral E to MV E' Ratio 7.0 Mitral E to LV E' Lateral Ratio 6.6 Mitral E to LV E' Septal Ratio 7.6 TR Peak Velocity 132.3 cm/s TR Peak Gradient 7.0 mmHg TV Peak E Velocity 98.0 cm/s Right Atrial Pressure 3.0 mmHg Pulmonary Artery Systolic Pressu 10.0 mmHg PV Peak Velocity 99.0 cm/s FINDINGS Left Ventricle Normal left ventricular size, systolic function and wall thickness, with no regional wall motion abnormalities. LVEF is 50 to 55%. Normal left ventricular wall thickness. Normal diastolic filling pattern. Right Ventricle The right ventricle is normal in size and function. Right Atrium The right atrium is normal in size. Left Atrium The left atrium is normal in size. Mitral Valve Structurally normal mitral valve without significant stenosis or prolapse. There is no mitral regurgitation. Aortic Valve Structurally normal aortic valve without significant sclerosis or stenosis. There is no aortic regurgitation. Tricuspid Valve Structurally normal tricuspid valve without significant stenosis or regurgitation. Insufficient TR jet to calculate RVSP. Pulmonic Valve Structurally normal pulmonic valve without significant stenosis. There is trace pulmonic regurgitation. Pericardium Normal pericardium without effusion. Aorta Normal ascending aorta dimension. CONCLUSIONS LV systolic function is normal with EF of 50 to 55%. Diastolic function is normal. Vitals and studies are available. Jonel Hsu MD (Electronically Signed) Final Date: 06 June 2020 10:00 S
--- NOTE | 2020-06-06 07:45 | XR_ITS ---
WS: [id number] XR chest 1V portable [id number] REASON FOR EXAM: SOB FINDINGS: Left pleural effusion and left lower lung consolidation are unchanged compared to the previous examin ation of 06/05/2020. No new findings. XR/XR chest 1V portable [id number] IMPRESSION: Stable abnormal chest.
[2020-06-06] MEDS: octreotide 500 MCG in sodium chloride 0.9% (100 ml) 100 ML 10.1 MCG IV ×2 (07:57→17:41)
[2020-06-06] MEDS: FUROsemide 10 mg/mL SDV 2mL 20 MG IVP (07:59)
[2020-06-06] MEDS: TRAMadol 50 mg Tablet PO (08:00)
[2020-06-06] MEDS: pantoprazole 40 mg SDV IVP (10:06)
--- NOTE | 2020-06-06 10:43 | PM.TDS ---
Transfer Summary Providers Date of Admission: 06/02/20 01:01 Date of Discharge: 06/06/20 Attending Provider at Admission: Desiree Carrero MD Attending Provider at Transfer: Glalo De León MD Anticipated Date of Transfer: Anticipated date of transfer: 06/06/20 Receiving Facility & Provider: Receiving Provider: [] Receiving facility: [] Diagnoses at Discharge Discharge Diagnosis (1) Esophageal adenocarcinoma: Status: Acute (2) Respiratory failure: Status: Acute (3) Duodenal ulcer: Status: Acute (4) GI bleed: Status: Acute Qualifiers: GI bleed type/associated pathology: unspecified gastrointestinal hemorrhage type Qualified Code(s): K92.2 - Gastrointestinal hemorrhage, unspecified (5) Pneumonia: Status: Acute Qualifiers: Pneumonia type: due to unspecified organism Laterality: left Lung location: unspecified part of lung Qualified Code(s): J18.9 - Pneumonia, unspecified organism (6) Jejunitis: Status: Acute (7) Esophagitis: Status: Acute (8) Gastritis and gastroduodenitis: Status: Acute (9) Severe anemia: Status: Acute Reason for Visit Reason for Visit: Left side back pain Hospital Course Hospital Course: Александр Schaeffer is a 60 year old male who presented to the emergency room with a chief complaint of back pain and leg pain. Patient was recently incarcerated in [facility]. He was there for about 4 months. He was released on parole. He walked a long way and then eventually ended up with a ride here. He has arrangements made to stay at [facility] for about 6 months. He has an electronic monitoring device on his left ankle. Because of all the walking he did his back is been bothering for several weeks. He was released in March. Groin muscles and low back muscles are what bother him the most. He reported fatigue as well as some nausea and vomiting. Work-up in the emergency room included laboratory studies which revealed a hemoglobin of 5. Stool was Hemoccult positive and black in color. Patient himself had not noted black stools or tarry stools. He denies any hematemesis. CTA of the chest abdomen and pelvis was done which showed Mild left middle mediastinum adenopathy in the inferior thorax with moderate to large left retrocrural adenopathy and probable gastrohepatic adenopathy and mild right retrocrural adenopathy. Lymphoma versus metastatic disease. Moderate jaswinder hepatis celiac axis and periaortic lymphadenopathy consistent with lymphoma versus metastatic disease. Uppper G/I Endoscopy was done for G.I bleed, which showed acute duodenal ulcer, duodenitis, gastritis, reflux gastritis.Esophagus, distal, biopsy:done during upper endoscopy showed ?Moderate to poorly differentiated invasive adenocarcinoma.?Immunohistochemical stains are pending. As part of LAD wok up PPD was done : which is negative, HIV serology is negative,quantiferon gold is pending.Patient has been on PPI as well as has received blood transfusion for severe anemia from G.I Bleed.He has also received FFP 1 Bag as well as Oral Vit K.On at around 5 pm patient started complaining of severe respiratory distress he was tachypenic and tachycardic, and he was also destaurating.His abg was suggestive of Ac Hypoxemia, physical examination was showing decreased air entry b/l as well as b/l basal crackles.Likely explanation for his ac hypoxemia was Transfusion assocaited circulatory overload.He was given lasix I.V and was placed on BIPAP.Complete hypoxia work up was done.Xray chest; is suggestive of underlying PNA as well as small Left pleural effusion.EKG was not showing any acute myocardial injury,Troponins were flat.2D echo : LV systolic function is normal with EF of 50 to 55%. Diastolic function is normal.Patient was also started on [employer] ABx to cover for PNA as well as for any other source.Currently he is saturating above 95 % on 4 L oxygen via [place]. Patient is a occasional smoker. Patient is bein transferred to [facility] for further management of esophageal malignancy as well for G.I Bleed. Physical Exam Narrative: EXAM NARRATIVE: EXAM NARRATIVE: GEN: Awake, alert and oriented, no acute distress CVS: S1S2 N RS: CTA B/L Abd: Soft, nt/nd , bs+ DRAWING SUPERVISOR: no focal neuro deficits Urinary Catheter Management^: 2-way Urethral: Cath Placed During This Visit: no Reason for Continuing Indwelling Catheter: Accurate Measurement of Urinary Output in Critically Ill Patients TS Data Data Completed and Pending: Completed Studies During Hospitalization Category Date Time Status CT angio chest ab domen pelvis Urgen t Cat Scan 06/01/20 20:54 Completed XR chest 1V jaswinder ble [id number] Stat Exams 10/07/20 09:29 Completed XR chest 1V jaswinder ble [id number] Stat Exams 06/06/20 07:45 Completed Pathology: Surgic al [PTH] Routine Pth 06/03/20 13:18 Completed CV echo complete* [id number] Routine Ultrasound 06/06/20 07:16 Completed Pending at discharge Category Date Time Status ABG FULL [Arteria l Blood Gas Full] Stat Lab 06/05/20 18:05 Received Histoplasma Quant itative AG Routine Lab 06/03/20 16:36 Received [id number]-FL-[id number] ld Plus Stat Lab 06/03/20 17:40 Received Vancomycin Trough Timed Lab 06/06/20 19:00 Ordered Labs from last 24 hours 06/06/20 06/06/20 06/06/20 03:00 03:00 03:00 WBC 11.4 H RBC 2.74 L Hgb 7.8 L Hct 24.5 L MCV 89.4 MCH 28.5 MCHC 31.8 RDW 16.1 H Plt Count 50 L MPV 13.3 H Neut % (Auto) 84.9 Lymph % (Auto) 3.1 [place] % (Auto) 5.3 Eos % (Auto) 0.1 Baso % (Auto) 0.2 Neut # (Auto) 9.71 H Lymph # (Auto) 0.4 L [place] # (Auto) 0.6 Eos # (Auto) 0.0 Baso # (Auto) 0.0 Nucleated RBC % (a uto) 0.7 Nucleated RBCs # 0.1 Specimen Type Sample Site ABG pH ABG pCO2 ABG pO2 ABG HCO3 ABG O2 Saturation ABG Base Excess [place] Test A-a O2 Gradient Hematocrit Hgb O2 Saturation Carboxyhemoglobin Methemoglobin Total Hemoglobin Sodium 131 L Potassium 4.0 Glucose 130 H Ionized Calcium O2 Delivery Device Palliative Care Coordinator ID Chloride 93 L Carbon Dioxide 24 Anion Gap 18.0 BUN 22 H Creatinine 1.0 GFR Calculation 76.5 L Calculated Osmolal ity 277 L Lactic Acid (Sepsi s) Calcium 8.3 L Troponin T Baselin e Troponin T 120 Min [place] Delta Troponin T Troponin T Hi Sens 6Hr 526.6 H Troponin T Hi Sens 6Hr Delta -70.4 L Blood Type Rho(D) Type Antibody Screen Crossmatch 06/05/20 06/05/20 06/05/20 23:00 21:23 18:05 WBC RBC Hgb Hct MCV MCH MCHC RDW Plt Count MPV Neut % (Auto) Lymph % (Auto) [place] % (Auto) Eos % (Auto) Baso % (Auto) Neut # (Auto) Lymph # (Auto) [place] # (Auto) Eos # (Auto) Baso # (Auto) Nucleated RBC % (a uto) Nucleated RBCs # Specimen Type Pending Sample Site Pending ABG pH Pending ABG pCO2 Pending ABG pO2 Pending ABG HCO3 Pending ABG O2 Saturation Pending ABG Base Excess Pending [place] Test Pending A-a O2 Gradient Pending Hematocrit Pending Hgb O2 Saturation Pending Carboxyhemoglobin Pending Methemoglobin Pending Total Hemoglobin Pending Sodium Pending Potassium Pending Glucose Pending Ionized Calcium Pending O2 Delivery Device Pending Palliative Care Coordinator ID Pending Chloride Carbon Dioxide Anion Gap BUN Creatinine GFR Calculation Calculated Osmolal ity Lactic Acid (Sepsi s) Calcium Troponin T Baselin e 597 H* Troponin T 120 Min [place] 604.8 H Delta Troponin T 7.8 Troponin T Hi Sens 6Hr Troponin T Hi Sens 6Hr Delta Blood Type Rho(D) Type Antibody Screen Crossmatch 06/05/20 06/05/20 06/05/20 17:50 13:14 05:39 WBC 11.2 H RBC 3.41 L Hgb 9.7 L D Hct 31.2 L D MCV 91.5 MCH 28.4 MCHC 31.1 RDW 16.1 H Plt Count 76 L MPV 12.8 H Neut % (Auto) 85.8 Lymph % (Auto) 6.4 [place] % (Auto) 2.0 Eos % (Auto) 0.1 Baso % (Auto) 0.3 Neut # (Auto) 9.62 H Lymph # (Auto) 0.7 L [place] # (Auto) 0.2 Eos # (Auto) 0.0 Baso # (Auto) 0.0 Nucleated RBC % (a uto) 2.5 Nucleated RBCs # 0.3 Specimen Type Sample Site ABG pH ABG pCO2 ABG pO2 ABG HCO3 ABG O2 Saturation ABG Base Excess [place] Test A-a O2 Gradient Hematocrit Hgb O2 Saturation Carboxyhemoglobin Methemoglobin Total Hemoglobin Sodium Potassium Glucose Ionized Calcium O2 Delivery Device Palliative Care Coordinator ID Chloride Carbon Dioxide Anion Gap BUN Creatinine GFR Calculation Calculated Osmolal ity Lactic Acid (Sepsi s) 2.5 H Calcium Troponin T Baselin e Troponin T 120 Min [place] Delta Troponin T Troponin T Hi Sens 6Hr Troponin T Hi Sens 6Hr Delta Blood Type O Positive Rho(D) Type Positive Antibody Screen Negative Crossmatch See Detail Vitals: Last Vital Signs Temp 98.0 F 06/06/20 00:00 Pulse 71 06/06/20 05:00 Resp 16 06/06/20 05:00 BP 106/73 06/06/20 05:00 Pulse Ox 98 06/06/20 05:00 TS Medications Medications Home Medications No Known Home Medications 06/03/20 [History Confirmed 06/03/20] Active Medications Acetaminophen (Tylenol) 650 mg PO Q6H PRN PRN Reason: Mild/Mod Pain Or Temp >/= 101 Last Admin: 06/06/20 10:05 Dose: 650 mg Documented by: Sodium Chloride (Sodium Chloride 0.9%) 1,000 mls @ 30 mls/hr IV .Q24H [facility] Last Infusion: 06/06/20 10:06 Dose: 30 mls/hr Documented by: Octreotide Acetate 500 mcg/ (Sodium Chloride) 101 mls @ 10.1 mls/hr IV .Q10H [facility] Stop: 06/07/20 11:59 Last Admin: 06/06/20 07:57 Dose: 50 mcg/hr, 10.1 mls/hr Documented by: Vancomycin HCl 1,000 mg/ (Sodium Chloride) 250 mls @ 250 mls/hr IV Q8H [facility] Last Admin: 06/06/20 04:11 Dose: 250 mls/hr Documented by: Piperacillin Sod/Tazobactam (Sod 3.375 gm/ Sodium Chloride) 50 mls @ 12.5 mls/hr IV Q8H [facility]; Protocol Last Infusion: 06/06/20 10:06 Dose: Infused Documented by: Lorazepam (Ativan) 0.5 mg IVP Q8H PRN PRN Reason: ANXIETY Ondansetron HCl (Zofran) 4 mg IVP Q6H PRN PRN Reason: NAUSEA AND VOMITING Pantoprazole Sodium (Protonix) 40 mg IVP Q12H [facility] Last Admin: 06/06/20 10:06 Dose: 40 mg Documented by: Sucralfate (Carafate Oral Liq) 1 gm PO Q6H [facility] Last Admin: 06/06/20 07:59 Dose: 1 gm Documented by: Discharge Plan Discharge Patient Disposition: Home Condition: Stable Prescriptions: No Action No Known Home Medications RF: 0 Discharge Diet: Regular Discharge Activity: Increase activity as tolerated Patient Instructions: Low Back Strain (ED) Transfer Attestations Time Spent in Transfer Care*: greater than 30 min Specific Discharge Activities: Specific discharge activities: educating patient, educating and/or supporting family/caregiver, discussing with pcp/other providers, discussing with business case analyst/social workers/dc planners, documenting/other paperwork and evaluating patient/reviewing data Status at Transfer: Cognitive status at transfer: cognitively intact, Behavioral status at transfer: cooperative, Functional status at transfer: independent ambulation Overall status at transfer: patient is progressing back to baseline Quality Metrics Clinical Quality Measures: During this hospital stay, did patient experience: None Coding Level of Care Code Acute Hse Specialist for Mimi Goldstein Diagnoses Esophageal adenocarcinoma C15.9 Respiratory failure J96.90 Duodenal ulcer K26.9 GI bleed K92.2 GI bleed type/associated pathology: unspecified gastrointestinal hemorrhage type Pneumonia J18.9 Pneumonia type: due to unspecified organism Laterality: left Lung location: unspecified part of lung Jejunitis K52.9 Esophagitis K20.9 Gastritis and gastroduodenitis K29.70; K29.90 Severe anemia D64.9
--- NOTE | 2020-06-06 11:45 | PC.NURSE ---
0630- RECEIVED REPORT FROM ERNIE KATE. NO BM OVERNIGHT AWAITING BED AT [facility] IN [facility] D/T GI BLEED & ESOPHAGEAL CANCER. PEREZ CATH DRAINING BLOOD TINGED URINE. LEFT AC IV PULLED OUT BY Proxio TECH THIS AM. LEFT HAND IV DISLODGED WHEN PT GETTING UP TO CHAIR. RIGHT HAND IV OCCLUDED. X2 20 G IV TO LEFT WRIST & LEFT FOREARM.
[2020-06-06] MEDS: HYDROmorphone 1 mg/mL INJ 1 mL 2 MG IVP ×2 (12:27→17:35)
--- NOTE | 2020-06-06 12:42 | PC.NURSE ---
PAIN MED GIVEN TO PT. NOTED TO BE DIAPHORETIC STATES THAT THIS HAS BEEN HAPPENING FOR AWHILE. WILL CONTINUE TO MONITOR.
[2020-06-06 14:51] LABS: Quantiferon Mitogen >10.00 IU/mL; Quantiferon Nil 0.02 IU/mL; Quantiferon Plus TB1 <0.00 IU/mL; Quantiferon Plus TB2 <0.00 IU/mL; Quantiferon TB Gold NEGATIVE (NEGATIVE)
--- NOTE | 2020-06-06 15:16 | PC.NURSE ---
Addendum entered by Sophy Rodriguez RN 06/06/20 15:22: PERSONAL BELONGINGS BAGGED UP WITH PT NAME ON THEM. ATTEMPTED TO CONTACT HIS BROTHER ALIS PRIOR TO DEPARTURE. Original Note: TRANSFER TO [facility] ROOM [id number] REPORT CALLED TO [phone] MY ANNETTE RN RECEIVING RN.
[2020-06-06 16:21] LABS: Histoplasma Antigen (Quant) NONE DETECTED; Histoplasma Antigen Interpreta NEGATIVE; Histoplasma Antigen Specimen URINE
--- NOTE | 2020-06-06 18:32 | PC.NURSE ---
TRANSFER TO [facility] BY [facility]. PERSONAL BELONGINGS WITH PT/EMS CREW. EXTRA BAG OF OCTREOTIDE SENT WITH EMS. WISHED WELL.
== END 2020-06-06 18:20 | disposition short-term general hospital (02) | DRG 374 ==
LOC: ER 06-02 00:57 → MEDSURG 06-02 01:28 → ICU 06-05 19:57
PROVIDERS: Physician Assistant; Student in an Organized Health Care Education/Training Program; Surgery; Admitting Provider Hospitalist; Emergency Provider Emergency Medicine; Visit Provider Internal Medicine
PROC: 0DJ08ZZ Inspection of Upper Intestinal Tract, Via Natural or Artificial Opening Endoscopic (ICD-10-PCS; CPT 43235; principal; 2020-06-02 08:30)
DX: C15.5 Malignant neoplasm of lower third of esophagus (principal); J18.9 Pneumonia, unspecified organism; K26.4 Chronic or unspecified duodenal ulcer with hemorrhage; D62 Acute posthemorrhagic anemia; E87.1 Hypo-osmolality and hyponatremia; F17.210 Nicotine dependence, cigarettes, uncomplicated; Z59.0 Homelessness; K21.9 Gastro-esophageal reflux disease without esophagitis; R59.0 Localized enlarged lymph nodes; K80.80 Other cholelithiasis without obstruction; K52.9 Noninfective gastroenteritis and colitis, unspecified; G43.909 Migraine, unspecified, not intractable, without status migrainosus; M54.9 Dorsalgia, unspecified
CPT/HCPCS: 12345; 36415; 36430; 36600; 43236; 43239; 43255; 71045; 71275; 74174; 80048; 80051; 80053; 81003; 82272; 82570; 82607; 82746; 82810; 83540; 83550; 83605; 83986; 84145; 84300; 84443; 84484; 84550; 85007; 85025; 85610; 85651; 85730; 86140; 86480; 86850; 86900; 86920; 86927; 87077; 87385; 87426; 87806; 88305; 93005; 93306; 94660; 96372; 96375; 99283; C9113; J0696; J1170; J1885; J1940; J2270; J2354; J2360; J2543; J2704; J3370; J3430; J7030; J7050; P9016; P9017; Q0162; Q9967